=== PATIENT | female | born 1955 | race Caucasian/White ===

== ENCOUNTER 2016-08-05 13:21 | Inpatient (IN) ==
[2016-08-05] MEDS ORDERED: ATIVAN IM ONE (13:32)
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
[2016-08-05 14:10] LABS: BASO% 0.6 % (0.0-0.8); EOS# 0.03 X1000 (0.0-0.7); EOS% 0.2 % (0.0-10.0); HEMATOCRIT 41.5 % (37.0-47.0); HEMOGLOBIN 13.4 g/dL (12.0-16.0); IMM GRAN# 0.03 X1000 (0.0-0.04); IMM GRAN% 0.2 % (0.0-0.5); LYMPH# 2.68 X1000 (1.2-3.4); LYMPH% 22.2 % (20.5-51.1); MANUAL DIFF NEEDED? NO; MCH 26.2 PG (27-31); MCHC 32.3 g/dL (33-37); MCV 81.2 FL (81-99); MONO% 5.8 % (1.7-9.3); MPV 11.3 FL (7.4-10.4); PLT 404 X1000 (130-400); RBC 5.11 XMIL (4.2-5.4)
[2016-08-05 14:17] LABS: URINE SOURCE VOIDED
[2016-08-05 14:23] LABS: UR AMPHETAMINES QUAL NONE DETECTED (NONE DETECT); UR BARBITUATES QUAL NONE DETECTED (NONE DETECT); UR BENZODIAZEPIN QUAL NONE DETECTED (NONE DETECT); UR CANNABINOIDS QUAL NONE DETECTED (NONE DETECT); UR COCAINE QUAL NONE DETECTED (NONE DETECT); UR MDMA QUAL NONE DETECTED (NONE DETECT); UR METHADONE QUAL NONE DETECTED (NONE DETECT); UR METHAMPHETAMINE QUAL NONE DETECTED (NONE DETECT); UR OPIATES QUAL NONE DETECTED (NONE DETECT); UR OXYCODONE QUAL NONE DETECTED (NONE DETECT); UR PCP QUAL NONE DETECTED (NONE DETECT); UR TCA QUAL NONE DETECTED (NONE DETECT)
[2016-08-05 14:27] LABS: FREE T4 1.19 ng/dL (0.93-1.70)
[2016-08-05 14:34] LABS: BILIRUBIN URINE NEGATIVE (NEGATIVE); BLOOD URINE 1+ (NEGATIVE); CLARITY SL. CLOUDY (CLEAR); COLOR YELLOW; GLUCOSE URINE NEGATIVE (NEGATIVE); LEUKOCYTES URINE 2+ (NEGATIVE); NITRITE URINE POSITIVE (NEGATIVE); PROTEIN URINE TRACE mg/dL (NEGATIVE); UROBILINOGEN URINE NORMAL
[2016-08-05 14:35] LABS: URINE WBC 20-40 /HPF (<10)
[2016-08-05 14:36] LABS: URINE CULTURE PL NEEDED? YES; URINE EPITHELIAL CELLS <10 /HPF (<10); URINE RBC <10 /HPF (<10)
[2016-08-05 14:50] LABS: AGAP 14; ALKALINE PHOSPHATASE 119 U/L (32-104); BUN 6 mg/dL (8-22); CALCIUM 9.6 mg/dL (8.8-10.2); CHLORIDE 107 mmol/L (98-107); COSMO 290; GOT 14 U/L (10-30); GPT 9 U/L (10-36); SODIUM 146 mmol/L (136-145); TCO2 25 mmol/L (25-35); TOTAL PROTEIN 7.1 g/dL (6.3-8.3)
[2016-08-05 14:51] LABS: POTASSIUM 2.5 mmol/L (3.5-5.1)
[2016-08-05] MEDS ORDERED: POTASSIUM CHLORIDE 20 MEQ/SWI 100 ML IV SCH (17:00)
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
[2016-08-05] MEDS ORDERED: ZOFRAN IV PRN (17:42)
[2016-08-05] MEDS ORDERED: NS 1,000 ML IV SCH ×2 (17:42)
[2016-08-05] MEDS ORDERED: NS 0 ML ONE (17:46)
[2016-08-05] MEDS: ROCEPHIN 1 GM/NS 50 ML IV SCH (17:57)
[2016-08-05] MEDS ORDERED: PNEUMOVAX 23 IM ONE (18:45)
[2016-08-05] MEDS ORDERED: ZYPREXA ZYDIS PO ONE (19:04)
[2016-08-05] MEDS ORDERED: NS + KCL 40 MEQ 1,000 ML IV SCH (19:05)
[2016-08-05] MEDS ORDERED: KLOR-CON PO ONE ×2 (19:07→19:15)
[2016-08-05] MEDS: ZYPREXA ZYDIS PO SCH (20:06)
[2016-08-05] MEDS: TYLENOL PO PRN (22:41)
[2016-08-05] MEDS: HALDOL IV PRN (22:41)
[2016-08-06 05:45] LABS: MANUAL DIFF NEEDED? NO
[2016-08-06 06:01] LABS: BASO% 0.9 % (0.0-0.8); EOS# 0.15 X1000 (0.0-0.7); HEMATOCRIT 37.2 % (37.0-47.0); HEMOGLOBIN 11.9 g/dL (12.0-16.0); IMM GRAN# 0.01 X1000 (0.0-0.04); IMM GRAN% 0.1 % (0.0-0.5); LYMPH# 3.12 X1000 (1.2-3.4); LYMPH% 41.9 % (20.5-51.1); MCH 26.6 PG (27-31); MCV 83.2 FL (81-99); MONO# 0.54 X1000 (0.11-0.59); MONO% 7.2 % (1.7-9.3); MPV 11.6 FL (7.4-10.4); NEUT% 47.9 % (42.2-75.2); PLT 323 X1000 (130-400); RBC 4.47 XMIL (4.2-5.4)
[2016-08-06 06:25] LABS: AGAP 9; BUN 4 mg/dL (8-22); CALCIUM 8.7 mg/dL (8.8-10.2); CHLORIDE 114 mmol/L (98-107); COSMO 289; POTASSIUM 3.2 mmol/L (3.5-5.1); SODIUM 147 mmol/L (136-145); TCO2 25 mmol/L (25-35)
[2016-08-06] MEDS ORDERED: NS 1,000 ML IV SCH (07:00)
[2016-08-06] MEDS ORDERED: KLOR-CON PO ONE (08:12)
[2016-08-06] MEDS ORDERED: FLUZONE QUAD 2016-2017 SYRINGE IM ONE (09:00)
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
[2016-08-06] MEDS: PRILOSEC PO SCH ×2 (10:24→20:26)
[2016-08-06] MEDS: NORVASC PO SCH (10:24)
[2016-08-06] MEDS: BUSPAR PO SCH (10:25)
[2016-08-06] MEDS: TYLENOL PO PRN (16:24)
[2016-08-06] MEDS: ROCEPHIN 1 GM/NS 50 ML IV SCH (16:25)
[2016-08-06] MEDS: ZYPREXA ZYDIS PO SCH (20:26)
[2016-08-07] MEDS: ATIVAN PO PRN (03:42)
[2016-08-07] MEDS: PRILOSEC PO SCH ×2 (06:21→20:28)
[2016-08-07 06:46] LABS: MANUAL DIFF NEEDED? NO
[2016-08-07 06:51] LABS: EOS# 0.14 X1000 (0.0-0.7); EOS% 1.6 % (0.0-10.0); HEMATOCRIT 38.8 % (37.0-47.0); IMM GRAN# 0.01 X1000 (0.0-0.04); IMM GRAN% 0.1 % (0.0-0.5); LYMPH# 3.29 X1000 (1.2-3.4); LYMPH% 37.5 % (20.5-51.1); MCH 26.3 PG (27-31); MCHC 30.9 g/dL (33-37); MCV 84.9 FL (81-99); MONO# 0.56 X1000 (0.11-0.59); MONO% 6.4 % (1.7-9.3); MPV 12.1 FL (7.4-10.4); NEUT% 53.4 % (42.2-75.2); PLT 321 X1000 (130-400); RBC 4.57 XMIL (4.2-5.4)
[2016-08-07 07:45] LABS: AGAP 8; BUN 5 mg/dL (8-22); CALCIUM 8.7 mg/dL (8.8-10.2); CHLORIDE 110 mmol/L (98-107); COSMO 284; POTASSIUM 3.7 mmol/L (3.5-5.1); SODIUM 144 mmol/L (136-145); TCO2 26 mmol/L (25-35)
[2016-08-07] MEDS: NORVASC PO SCH (09:19)
[2016-08-07] MEDS: BUSPAR PO SCH (09:19)
--- NOTE | 2016-08-07 10:09 | EKG Report ---
Test Performed on : 08/07/2016 09:26:51 AM Test Reason : baseline EKG Blood Pressure : / mmHG Vent. Rate : 061 BPM Atrial Rate : 061 BPM P-R Int : 174 ms QRS Dur : 074 ms QT Int : 394 ms P-R-T Axes : 061 032 -26 degrees QTc Int : 396 ms Normal sinus rhythm. Normal ECG No previous ECGs available Confirmed by Nayan Davenport MD ([id number]) on 08/22/2016 5:06:57 PM
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
[2016-08-07] MEDS: NORCO-5 PO PRN ×2 (13:45→20:28)
[2016-08-07] MEDS: ROCEPHIN 1 GM/NS 50 ML IV SCH (16:37)
[2016-08-07] MEDS: ZYPREXA ZYDIS PO SCH (20:25)
[2016-08-08] MEDS: NORCO-5 PO PRN ×4 (00:25→20:50)
[2016-08-08] MEDS: ATIVAN PO PRN ×2 (02:25→20:51)
[2016-08-08] MEDS: MORPHINE IV PRN ×3 (02:35→23:43)
[2016-08-08] MEDS: PRILOSEC PO SCH ×3 (04:19→20:50)
[2016-08-08] MEDS: NORVASC PO SCH (08:23)
[2016-08-08] MEDS: BUSPAR PO SCH (08:23)
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
[2016-08-08] MEDS: ROCEPHIN 1 GM/NS 50 ML IV SCH (17:50)
[2016-08-08] MEDS: ZYPREXA ZYDIS PO SCH (20:51)
[2016-08-09] MEDS: PRILOSEC PO SCH ×3 (04:44→20:42)
[2016-08-09] MEDS: MORPHINE IV PRN (04:44)
[2016-08-09] MEDS: ATIVAN PO PRN (04:45)
--- NOTE | 2016-08-09 08:27 | Diag Imaging Result Document ---
PROCEDURE NAME: LUMBAR SPINE 2-VIEWS - 08/08/2016 LUMBAR SPINE AP AND LATERAL, TWO VIEWS: FINDINGS: No compressed vertebra. No subluxation. There are mild degenerative changes. Questionable mild scoliosis. IMPRESSION: No acute fracture.
--- NOTE | 2016-08-09 08:30 | Diag Imaging Result Document ---
PROCEDURE NAME: XRAY HIP W/PELVIS BILAT 3-4VWS - 08/08/2016 PELVIS AND BILATERAL HIPS, FOUR VIEWS: FINDINGS: Neither hip is dislocated. No fracture to either hip. No pelvic fracture. No separation at the pubic symphysis. The sacroiliac joints are symmetrical. IMPRESSION: No acute bony injury.
--- NOTE | 2016-08-09 08:34 | Diag Imaging Result Document ---
PROCEDURE NAME: COCCYX/SACRUM - 08/08/2016 PLAIN RADIOGRAPHS OF THE COCCYX AND SACRUM, 3 VIEWS: COMPARISON: None available. FINDINGS: The bones appear somewhat osteopenic. There is over exposure of the sacrum and coccyx on the lateral view, limiting the sensitivity for detecting small fractures. However, no discrete fracture, dislocation, or intrinsic osseous lesion is identified involving the sacrum or coccyx given these limitations. IMPRESSION: No definite acute osseous abnormality.
[2016-08-09] MEDS: NORCO-5 PO PRN ×2 (08:56→20:42)
[2016-08-09] MEDS: BUSPAR PO SCH (08:56)
[2016-08-09] MEDS: NORVASC PO SCH (08:56)
--- NOTE | 2016-08-09 08:56 | Diag Imaging Result Document ---
PROCEDURE NAME: HEAD W/O CONTRAST - 08/09/2016 CT HEAD WITHOUT CONTRAST: COMPARISON: None available. FINDINGS: There are a few aneurysm clips in the region of the suprasellar cistern on the left. There is extensive left temporal encephalomalacia underlying a craniotomy defect. There is associated ex vacuo prominence of the left lateral ventricle. There is no definite acute infarct given the limited sensitivity of CT versus MRI. There is no discrete intracranial mass, mass effect, or acute intracranial hemorrhage. There is a chronic lacunar infarct involving the periventricular white matter on the left. There appears to be mild encephalomalacia involving the left cerebral peduncle. Aside from the craniotomy defect, the surrounding soft tissues and bony structures are essentially unremarkable. IMPRESSION: Extensive left hemispheric encephalomalacia and postsurgical changes, mainly affecting the left temporal lobe. No definite acute pathology is appreciated.
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
[2016-08-09] MEDS: ROCEPHIN 1 GM/NS 50 ML IV SCH (16:40)
[2016-08-09] MEDS: ZYPREXA ZYDIS PO SCH (20:42)
[2016-08-09] MEDS: HALDOL IV PRN (23:46)
[2016-08-10] MEDS: NORCO-5 PO PRN ×2 (05:06→21:43)
[2016-08-10] MEDS: HALDOL IV PRN ×2 (05:06→21:42)
[2016-08-10] MEDS: PRILOSEC PO SCH ×2 (06:25→21:42)
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
[2016-08-10] MEDS: BUSPAR PO SCH (09:34)
[2016-08-10] MEDS: NORVASC PO SCH (09:34)
[2016-08-10] MEDS: ROCEPHIN 1 GM/NS 50 ML IV SCH (17:45)
[2016-08-10] MEDS: ZYPREXA ZYDIS PO SCH (21:42)
[2016-08-11] MEDS: PRILOSEC PO SCH ×2 (06:41→22:00)
[2016-08-11] MEDS: NORVASC PO SCH (08:32)
[2016-08-11] MEDS: BUSPAR PO SCH (08:32)
[2016-08-11] MEDS ORDERED: BENADRYL PO ONE (10:14)
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
[2016-08-11] MEDS: NORCO-5 PO PRN (11:00)
[2016-08-11] MEDS: ZYRTEC PO SCH (11:00)
[2016-08-11] MEDS: ROCEPHIN 1 GM/NS 50 ML IV SCH (17:39)
[2016-08-11] MEDS: ZYPREXA ZYDIS PO SCH (22:00)
[2016-08-12] MEDS: PRILOSEC PO SCH ×2 (06:34→20:49)
[2016-08-12] MEDS: NORCO-5 PO PRN ×2 (08:51→18:32)
[2016-08-12] MEDS: BUSPAR PO SCH (08:51)
[2016-08-12] MEDS: NORVASC PO SCH (08:52)
[2016-08-12] MEDS: ZYRTEC PO SCH (08:52)
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
[2016-08-12] MEDS: ROCEPHIN 1 GM/NS 50 ML IV SCH (16:12)
[2016-08-12] MEDS: ZYPREXA ZYDIS PO SCH (20:49)
[2016-08-12] MEDS: MORPHINE IV PRN (21:44)
[2016-08-13] MEDS: PRILOSEC PO SCH ×2 (06:37→21:43)
[2016-08-13] MEDS: ZYRTEC PO SCH (10:09)
[2016-08-13] MEDS: BUSPAR PO SCH (10:09)
[2016-08-13] MEDS: NORVASC PO SCH (10:09)
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
[2016-08-13] MEDS: NORCO-5 PO PRN ×2 (17:31→21:43)
[2016-08-13] MEDS: ZYPREXA ZYDIS PO SCH (21:42)
[2016-08-13] MEDS: MORPHINE IV PRN (23:06)
[2016-08-13] MEDS: ATIVAN PO PRN (23:07)
[2016-08-14] MEDS: PRILOSEC PO SCH ×2 (06:14→21:41)
[2016-08-14 10:25] LABS: URINE SOURCE CATH
[2016-08-14] MEDS: ZYRTEC PO SCH (10:57)
[2016-08-14] MEDS: NORVASC PO SCH (10:58)
[2016-08-14] MEDS: BUSPAR PO SCH (10:58)
[2016-08-14 11:06] LABS: BILIRUBIN URINE NEGATIVE (NEGATIVE); BLOOD URINE TRACE (NEGATIVE); CLARITY CLEAR (CLEAR); COLOR YELLOW; GLUCOSE URINE NEGATIVE (NEGATIVE); LEUKOCYTES URINE TRACE (NEGATIVE); NITRITE URINE NEGATIVE (NEGATIVE); PROTEIN URINE NEGATIVE (NEGATIVE); UROBILINOGEN URINE NORMAL
[2016-08-14 11:13] LABS: URINE CULTURE PL NEEDED? YES; URINE EPITHELIAL CELLS <10 /HPF (<10); URINE RBC <10 /HPF (<10)
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
[2016-08-14] MEDS: NORCO-5 PO PRN ×2 (17:23→21:41)
[2016-08-14] MEDS: ATIVAN PO PRN (21:41)
[2016-08-14] MEDS: ZYPREXA ZYDIS PO SCH (21:41)
[2016-08-15] MEDS: PRILOSEC PO SCH ×3 (05:41→21:11)
[2016-08-15 06:16] LABS: HEMATOCRIT 38.5 % (37.0-47.0); MCH 26.4 PG (27-31); MCHC 31.2 g/dL (33-37); MCV 84.8 FL (81-99); RBC 4.54 XMIL (4.2-5.4)
[2016-08-15 06:37] LABS: AGAP 10; ALBUMIN 3.5 g/dL (3.5-5.0); ALKALINE PHOSPHATASE 106 U/L (32-104); BUN 18 mg/dL (8-22); CALCIUM 9.4 mg/dL (8.8-10.2); CHLORIDE 102 mmol/L (98-107); COSMO 278; GOT 18 U/L (10-30); GPT 22 U/L (10-36); MAGNESIUM 2.2 mg/dL (1.5-2.7); POTASSIUM 3.9 mmol/L (3.5-5.1); SODIUM 138 mmol/L (136-145); TCO2 26 mmol/L (25-35); TOTAL PROTEIN 6.4 g/dL (6.3-8.3)
[2016-08-15] MEDS: ZYRTEC PO SCH (08:29)
[2016-08-15] MEDS: ATIVAN PO PRN (08:29)
[2016-08-15] MEDS: NORVASC PO SCH (08:30)
[2016-08-15] MEDS: BUSPAR PO SCH (08:30)
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
[2016-08-15] MEDS: NORCO-5 PO PRN (21:11)
[2016-08-15] MEDS: ZYPREXA ZYDIS PO SCH (21:11)
[2016-08-16] MEDS: PRILOSEC PO SCH ×2 (06:29→21:50)
[2016-08-16] MEDS: ZYRTEC PO SCH (08:39)
[2016-08-16] MEDS: NORVASC PO SCH (08:39)
[2016-08-16] MEDS: BUSPAR PO SCH (08:39)
[2016-08-16] MEDS: NORCO-5 PO PRN ×2 (08:40→13:58)
[2016-08-16] MEDS: ATIVAN PO PRN (08:41)
[2016-08-16] MEDS: HALDOL IV PRN (13:58)
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
[2016-08-16] MEDS: ZYPREXA ZYDIS PO SCH (21:50)
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
[2016-08-17] MEDS: PRILOSEC PO SCH ×2 (06:02→20:32)
[2016-08-17] MEDS: BUSPAR PO SCH (10:10)
[2016-08-17] MEDS: NORVASC PO SCH (10:10)
[2016-08-17] MEDS: ZYRTEC PO SCH (10:10)
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
[2016-08-17] MEDS: IMODIUM PO PRN (14:43)
[2016-08-17] MEDS ORDERED: NORCO-7.5 PO ONE (14:44)
[2016-08-17] MEDS: NORCO-7.5 PO PRN (20:32)
[2016-08-17] MEDS: ATIVAN PO PRN (20:33)
[2016-08-17] MEDS: ZYPREXA ZYDIS PO SCH (20:33)
[2016-08-18] MEDS: PRILOSEC PO SCH ×3 (06:05→22:08)
[2016-08-18] MEDS: BUSPAR PO SCH (08:18)
[2016-08-18] MEDS: NORVASC PO SCH (08:18)
[2016-08-18] MEDS: ZYRTEC PO SCH (08:18)
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
[2016-08-18] MEDS: ATIVAN PO PRN ×2 (19:45→23:46)
[2016-08-18] MEDS: NORCO-7.5 PO PRN ×2 (19:45→23:46)
[2016-08-18] MEDS: ZYPREXA ZYDIS PO SCH ×2 (19:45→22:08)
[2016-08-19] MEDS: PRILOSEC PO SCH ×2 (06:10→21:33)
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
[2016-08-19] MEDS: NORVASC PO SCH (10:24)
[2016-08-19] MEDS: ZYRTEC PO SCH (10:24)
[2016-08-19] MEDS: BUSPAR PO SCH (10:24)
[2016-08-19] MEDS: ZYPREXA ZYDIS PO SCH (21:33)
[2016-08-20] MEDS: NORCO-7.5 PO PRN ×3 (07:56→22:27)
[2016-08-20] MEDS: PRILOSEC PO SCH ×2 (07:57→20:52)
[2016-08-20] MEDS: BUSPAR PO SCH (09:13)
[2016-08-20] MEDS: NORVASC PO SCH (09:13)
[2016-08-20] MEDS: ZYRTEC PO SCH (09:13)
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
[2016-08-20] MEDS: IMODIUM PO PRN (18:27)
[2016-08-20] MEDS: ZYPREXA ZYDIS PO SCH (20:52)
[2016-08-20] MEDS: ATIVAN PO PRN (22:27)
[2016-08-21] MEDS: NORCO-7.5 PO PRN ×3 (06:28→19:51)
[2016-08-21] MEDS: PRILOSEC PO SCH ×2 (06:28→22:02)
[2016-08-21] MEDS: BUSPAR PO SCH (08:42)
[2016-08-21] MEDS: NORVASC PO SCH (08:42)
[2016-08-21] MEDS: ZYRTEC PO SCH (08:42)
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
[2016-08-21] MEDS: ZYPREXA ZYDIS PO SCH ×2 (19:50→22:03)
[2016-08-21] MEDS: ATIVAN PO PRN (19:51)
[2016-08-22] MEDS: PRILOSEC PO SCH ×2 (06:29→20:41)
[2016-08-22] MEDS: NORCO-7.5 PO PRN ×4 (06:29→23:04)
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
[2016-08-22] MEDS: BUSPAR PO SCH (09:07)
[2016-08-22] MEDS: NORVASC PO SCH (09:08)
[2016-08-22] MEDS: ZYRTEC PO SCH (09:08)
[2016-08-22] MEDS: ZYPREXA ZYDIS PO SCH (20:41)
[2016-08-22] MEDS: ATIVAN PO PRN (23:04)
[2016-08-23] MEDS: PRILOSEC PO SCH ×3 (06:24→20:34)
[2016-08-23] MEDS: NORCO-7.5 PO PRN ×2 (06:24→19:44)
[2016-08-23] MEDS: BUSPAR PO SCH (09:20)
[2016-08-23] MEDS: NORVASC PO SCH (09:20)
[2016-08-23] MEDS: ZYRTEC PO SCH (09:20)
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
[2016-08-23] MEDS ORDERED: CALMOSEPTINE OINTMENT TOP PRN (14:32)
[2016-08-23] MEDS: ZYPREXA ZYDIS PO SCH ×2 (19:44→20:34)
[2016-08-23] MEDS: ATIVAN PO PRN (19:44)
[2016-08-24] MEDS: ATIVAN PO PRN ×2 (00:16→19:56)
[2016-08-24] MEDS: NORCO-7.5 PO PRN ×2 (00:17→19:56)
[2016-08-24] MEDS: PRILOSEC PO SCH ×3 (06:04→20:53)
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
[2016-08-24] MEDS: BUSPAR PO SCH (08:51)
[2016-08-24] MEDS: NORVASC PO SCH (08:52)
[2016-08-24] MEDS: ZYRTEC PO SCH (08:52)
[2016-08-24] MEDS: ZYPREXA ZYDIS PO SCH ×2 (19:55→20:53)
[2016-08-25] MEDS: NORCO-7.5 PO PRN ×2 (00:45→18:05)
[2016-08-25] MEDS: ATIVAN PO PRN ×2 (00:45→19:55)
[2016-08-25] MEDS: PRILOSEC PO SCH ×3 (06:17→22:20)
--- NOTE | 2016-08-25 07:37 | Extremity Venous Study ---
PROCEDURE NAME: Venous U/S Bilateral Legs - 08/24/2016 BILATERAL LOWER EXTREMITY VENOUS DOPPLER ULTRASOUND: FINDINGS: RIGHT: There is good flow and compressibility in the veins of the right lower extremity. No thrombus. Normal augmentation. LEFT: There is good flow and compressibility in the veins of the left lower extremity. No thrombus. Normal augmentation. There is a small hypo or anechoic area measured in the left popliteal region which may represent a small popliteal cyst. IMPRESSION: No evidence of deep venous thrombosis within either lower extremity.
[2016-08-25] MEDS: BUSPAR PO SCH (08:41)
[2016-08-25] MEDS: ZYRTEC PO SCH (08:41)
[2016-08-25] MEDS: NORVASC PO SCH (08:41)
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
[2016-08-25] MEDS: ZYPREXA ZYDIS PO SCH ×2 (19:55→22:20)
[2016-08-25] MEDS: TYLENOL PO PRN (19:55)
[2016-08-26] MEDS: NORCO-7.5 PO PRN ×3 (01:34→20:58)
[2016-08-26] MEDS: PRILOSEC PO SCH ×2 (06:44→20:57)
--- NOTE | 2016-08-26 08:42 | PROGRESS NOTE ---
DATE: 08/26/2016 SUBJECTIVE: No complaints. OBJECTIVE: Vital Signs: Reviewed and stable. General: The patient is awake. She is in no distress. ASSESSMENT: 1. Adult failure to thrive. 2. DHR case. PLAN: The patient continues to stay in the hospital. Waiting R's approval for rehab.
[2016-08-26] MEDS: ZYRTEC PO SCH (09:24)
[2016-08-26] MEDS: NORVASC PO SCH (09:24)
[2016-08-26] MEDS: BUSPAR PO SCH (09:24)
[2016-08-26] MEDS: ATIVAN PO PRN (20:57)
[2016-08-26] MEDS: ZYPREXA ZYDIS PO SCH (20:58)
[2016-08-26] MEDS: TYLENOL PO PRN (23:37)
[2016-08-27] MEDS: PRILOSEC PO SCH ×2 (06:26→20:16)
--- NOTE | 2016-08-27 08:26 | PROGRESS NOTE ---
DATE: 08/27/2016 SUBJECTIVE: The patient complains of constipation. PHYSICAL: Vital Signs: Stable reviewed. Temperature 97, pulse 80, respiratory rate 18, BP 127/74. General: Patient well developed. Respiratory: She is in no respiratory distress. CV: Regular rate. Chest: Clear. Abdomen: Soft. ASSESSMENT AND PLAN: 1. Constipation. Had MiraLAX. 2. Adult failure to thrive. Needs rehab. 3. DHR. Continue to wait on DHR evaluation and management. Patient will need rehab whenever DHR allows.
[2016-08-27] MEDS: NORVASC PO SCH (09:16)
[2016-08-27] MEDS: BUSPAR PO SCH (09:16)
[2016-08-27] MEDS: ZYRTEC PO SCH (09:16)
[2016-08-27] MEDS: MIRALAX PO SCH ×2 (09:19→20:15)
[2016-08-27] MEDS: NORCO-7.5 PO PRN ×2 (14:39→20:16)
[2016-08-27] MEDS: ZYPREXA ZYDIS PO SCH (20:16)
[2016-08-27] MEDS: ATIVAN PO PRN (20:16)
[2016-08-28] MEDS: PRILOSEC PO SCH ×2 (06:22→20:32)
[2016-08-28] MEDS: BUSPAR PO SCH (09:13)
[2016-08-28] MEDS: ZYRTEC PO SCH (09:13)
[2016-08-28] MEDS: NORVASC PO SCH (09:13)
[2016-08-28] MEDS: MIRALAX PO SCH ×2 (09:13→20:32)
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
[2016-08-28] MEDS: ATIVAN PO PRN (20:32)
[2016-08-28] MEDS: ZYPREXA ZYDIS PO SCH (20:32)
[2016-08-28] MEDS: NORCO-7.5 PO PRN (20:33)
[2016-08-29] MEDS: NORCO-7.5 PO PRN ×2 (02:01→20:56)
[2016-08-29] MEDS: ATIVAN PO PRN ×2 (02:01→20:56)
[2016-08-29] MEDS: PRILOSEC PO SCH ×2 (06:04→20:56)
[2016-08-29] MEDS: BUSPAR PO SCH (08:49)
[2016-08-29] MEDS: NORVASC PO SCH (08:50)
[2016-08-29] MEDS: MIRALAX PO SCH ×2 (08:50→20:56)
[2016-08-29] MEDS: ZYRTEC PO SCH (08:51)
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
[2016-08-29] MEDS: ZYPREXA ZYDIS PO SCH (20:56)
[2016-08-30] MEDS: ATIVAN PO PRN (01:07)
[2016-08-30] MEDS: NORCO-7.5 PO PRN (01:07)
[2016-08-30] MEDS: PRILOSEC PO SCH ×2 (06:24→20:51)
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
[2016-08-30] MEDS: MIRALAX PO SCH ×2 (10:11→23:19)
[2016-08-30] MEDS: NORVASC PO SCH (10:11)
[2016-08-30] MEDS: ZYRTEC PO SCH (10:11)
[2016-08-30] MEDS: BUSPAR PO SCH (10:11)
[2016-08-30] MEDS: ZYPREXA ZYDIS PO SCH (20:51)
[2016-08-31] MEDS: PRILOSEC PO SCH ×2 (06:10→20:58)
[2016-08-31] MEDS: BUSPAR PO SCH (08:50)
[2016-08-31] MEDS: NORVASC PO SCH (08:51)
[2016-08-31] MEDS: MIRALAX PO SCH ×2 (08:51→20:57)
[2016-08-31] MEDS: ZYRTEC PO SCH (08:52)
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
[2016-08-31] MEDS: ZYPREXA ZYDIS PO SCH (20:58)
[2016-09-01] MEDS: PRILOSEC PO SCH ×2 (06:15→20:36)
[2016-09-01] MEDS: BUSPAR PO SCH (09:05)
[2016-09-01] MEDS: ZYRTEC PO SCH (09:05)
[2016-09-01] MEDS: MIRALAX PO SCH ×2 (09:05→22:00)
[2016-09-01] MEDS: NORVASC PO SCH (09:05)
[2016-09-01] MEDS: ZYPREXA ZYDIS PO SCH (20:36)
[2016-09-02] MEDS: PRILOSEC PO SCH ×2 (06:29→20:44)
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
[2016-09-02] MEDS: NORVASC PO SCH (10:53)
[2016-09-02] MEDS: BUSPAR PO SCH (10:53)
[2016-09-02] MEDS: ZYRTEC PO SCH (10:53)
[2016-09-02] MEDS: MIRALAX PO SCH ×2 (10:54→20:59)
[2016-09-02] MEDS: NORCO-7.5 PO PRN (14:40)
[2016-09-02] MEDS: ZYPREXA ZYDIS PO SCH (20:44)
[2016-09-03] MEDS: PRILOSEC PO SCH ×2 (07:00→21:19)
[2016-09-03] MEDS: BUSPAR PO SCH (08:42)
[2016-09-03] MEDS: NORVASC PO SCH (08:42)
[2016-09-03] MEDS: ZYRTEC PO SCH (08:42)
[2016-09-03] MEDS: MIRALAX PO SCH ×2 (10:32→21:22)
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
[2016-09-03] MEDS: NORCO-7.5 PO PRN (21:19)
[2016-09-03] MEDS: ZYPREXA ZYDIS PO SCH (21:19)
[2016-09-03] MEDS: ATIVAN PO PRN (21:19)
[2016-09-04] MEDS: PRILOSEC PO SCH ×2 (06:36→22:34)
[2016-09-04] MEDS: MIRALAX PO SCH ×3 (07:54→22:33)
[2016-09-04] MEDS: NORVASC PO SCH ×2 (07:54→08:56)
[2016-09-04] MEDS: BUSPAR PO SCH ×2 (07:55→08:56)
[2016-09-04] MEDS: ZYRTEC PO SCH ×2 (07:55→08:56)
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
[2016-09-04] MEDS: ATIVAN PO PRN (22:33)
[2016-09-04] MEDS: ZYPREXA ZYDIS PO SCH (22:33)
[2016-09-04] MEDS: NORCO-7.5 PO PRN (22:34)
[2016-09-05] MEDS: PRILOSEC PO SCH ×2 (05:59→20:15)
[2016-09-05] MEDS: BUSPAR PO SCH (08:06)
[2016-09-05] MEDS: NORVASC PO SCH (08:06)
[2016-09-05] MEDS: ZYRTEC PO SCH (08:06)
[2016-09-05] MEDS: MIRALAX PO SCH ×2 (08:07→20:15)
[2016-09-05] MEDS: NORCO-7.5 PO PRN (20:14)
[2016-09-05] MEDS: ZYPREXA ZYDIS PO SCH (20:15)
[2016-09-05] MEDS: ATIVAN PO PRN (20:15)
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
[2016-09-06] MEDS: PRILOSEC PO SCH (09:08)
[2016-09-06] MEDS: NORVASC PO SCH (09:08)
[2016-09-06] MEDS: BUSPAR PO SCH (09:08)
[2016-09-06] MEDS: ZYRTEC PO SCH (09:08)
[2016-09-06] MEDS: MIRALAX PO SCH ×2 (09:08→20:01)
[2016-09-06] MEDS: NORCO-7.5 PO PRN (20:01)
[2016-09-07] MEDS ORDERED: BLISTEX MEDICATED BERRY LIP BALM TOP PRN (04:57)
[2016-09-07] MEDS: MIRALAX PO SCH ×2 (08:50→20:35)
[2016-09-07] MEDS: ZYRTEC PO SCH (08:50)
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
[2016-09-07] MEDS: NORCO-7.5 PO PRN (09:26)
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
[2016-09-08] MEDS: ZYRTEC PO SCH (08:56)
[2016-09-08] MEDS: MIRALAX PO SCH ×2 (08:57→22:00)
[2016-09-08] MEDS: NORCO-7.5 PO PRN (10:26)
--- NOTE | 2016-09-09 08:52 | PROGRESS NOTE ---
DATE: 09/09/2016 SUBJECTIVE: No complaints. OBJECTIVE: Vital signs: Reviewed. Stable. Physical exam unchanged. ASSESSMENT: 1. Failure to thrive. 2. Expressive aphasia. 3. Dementia. PLAN: We will continue to await [facility] and placement.
[2016-09-09] MEDS: MIRALAX PO SCH ×2 (09:52→20:44)
[2016-09-09] MEDS: ZYRTEC PO SCH (09:52)
[2016-09-10] MEDS: MIRALAX PO SCH ×2 (09:16→23:04)
[2016-09-10] MEDS: ZYRTEC PO SCH (09:16)
--- NOTE | 2016-09-10 10:14 | PROGRESS NOTE ---
DATE: 09/10/2016 SUBJECTIVE: No new complaints. OBJECTIVE: Vital Signs: Stable. Reviewed. No changes. Cardiovascular: Regular rate. ASSESSMENT: 1. Acute delirium resolved. 2. Failure to thrive. 3. Expressive aphasia. 4. Chronic dementia. PLAN: We will continue with [facility] evaluation and placement.
[2016-09-10] MEDS: NORCO-7.5 PO PRN (19:49)
[2016-09-11] MEDS: ZYRTEC PO SCH (08:28)
[2016-09-11] MEDS: MIRALAX PO SCH ×2 (08:28→20:06)
--- NOTE | 2016-09-11 11:20 | PROGRESS NOTE ---
DATE: 09/11/2016 SUBJECTIVE: No complaints. PHYSICAL EXAM: Vital Signs: Reviewed. She is in no respiratory distress. No focal neurological changes from previous exams. ASSESSMENT: 1. Adult failure to thrive. 2. Expressive aphasia likely from history of CVA in the past. 3. Chronic dementia. PLAN: Will continue supportive care until which time [facility] evaluation and placement have been achieved.
[2016-09-11] MEDS: NORCO-7.5 PO PRN (20:06)
[2016-09-12] MEDS: NORCO-7.5 PO PRN ×2 (08:25→21:29)
[2016-09-12] MEDS: ZYRTEC PO SCH (08:25)
[2016-09-12] MEDS: MIRALAX PO SCH ×2 (08:30→21:21)
--- NOTE | 2016-09-12 10:37 | PROGRESS NOTE ---
DATE: 09/12/2016 SUBJECTIVE: Patient complains of allergies. She notes that her Zyrtec has somehow been stopped. PHYSICAL EXAMINATION: Vital Signs: Temperature 97 degrees, pulse 82, respiratory 18, BP 181/72, typically around 125-136 systolic. General: She is sitting up, watching TV, eating breakfast. She is in no distress. ASSESSMENT: 1. Labile hypertension. Blood pressure is elevated today, but has been in the 120-130 systolics for the past several weeks. Therefore, we will just follow. 2. Allergies, treat with Zyrtec. PLAN: As noted previously, continue to await placement.
[2016-09-12] MEDS: LIPITOR PO SCH (21:21)
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
[2016-09-13] MEDS: MIRALAX PO SCH ×2 (08:49→20:09)
[2016-09-13] MEDS: ZYRTEC PO SCH (08:49)
[2016-09-13] MEDS: NORCO-7.5 PO PRN (12:21)
[2016-09-13] MEDS: LIPITOR PO SCH (20:08)
[2016-09-14] MEDS: MIRALAX PO SCH ×2 (09:45→20:02)
[2016-09-14] MEDS: ZYRTEC PO SCH (09:45)
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
[2016-09-14] MEDS: ATIVAN PO SCH (16:38)
[2016-09-14] MEDS: BUSPAR PO SCH ×2 (16:38→20:02)
[2016-09-14] MEDS: LIPITOR PO SCH (20:02)
[2016-09-14] MEDS: ZYPREXA ZYDIS PO PRN (23:13)
[2016-09-15] MEDS: BUSPAR PO SCH ×2 (10:09→20:26)
[2016-09-15] MEDS: MIRALAX PO SCH ×2 (10:09→20:26)
[2016-09-15] MEDS: ATIVAN PO SCH ×3 (10:09→16:08)
[2016-09-15] MEDS: ZYRTEC PO SCH (10:09)
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
[2016-09-15] MEDS: NORCO-7.5 PO PRN ×2 (16:07→20:26)
[2016-09-15] MEDS: ZYPREXA ZYDIS PO PRN (20:26)
[2016-09-15] MEDS: LIPITOR PO SCH (20:26)
[2016-09-16] MEDS: BUSPAR PO SCH ×2 (08:54→20:15)
[2016-09-16] MEDS: ATIVAN PO SCH ×2 (08:54→20:15)
[2016-09-16] MEDS: ZYRTEC PO SCH (08:54)
[2016-09-16] MEDS: MIRALAX PO SCH ×2 (08:54→20:15)
--- NOTE | 2016-09-16 10:56 | PROGRESS NOTE ---
DATE: 09/16/2016 SUBJECTIVE: The patient is tearful today. She looks a little bit more lethargic than usual. Very tearful. In any case, she is also pointing at her suprapubic area and talking about and those issues. OBJECTIVE: Vital signs: Blood pressure is 123/94, heart rate of 85, respiratory rate 18, temperature 98.1 degrees. General: A well-developed female in no acute distress. Cardiovascular: Regular rate and rhythm. Pulmonary: Bilateral breath sounds. Clear to auscultation. Gastrointestinal: Soft, nontender, nondistended. Bowel sounds are positive. LABORATORY DATA: None. PROBLEM LIST: 1. Dementia, vascular type. We have resumed her medications. I am not sure if Aricept may not help her a little bit. So, I am going to start some low-dose Aricept to see if it helps with her cognitive issues hopefully. 2. Suprapubic pain. We will check a urinalysis and make sure she is doing okay. 3. Depression/anxiety issues. I resumed her buspirone. We actually went up a little bit on the dose. I am going to cut back on her Ativan because I am just afraid that may be causing some confusion and we will start some low-dose Zyprexa at night and follow. DISPOSITION: We are still waiting on state evaluation for guardianship and placement. That is still in process which has delayed discharge.
[2016-09-16 16:17] LABS: URINE SOURCE CLEAN CATCH
[2016-09-16] MEDS: NORCO-7.5 PO PRN ×2 (16:22→20:15)
[2016-09-16 16:53] LABS: BILIRUBIN URINE NEGATIVE (NEGATIVE); BLOOD URINE 2+ (NEGATIVE); CLARITY VERY CLOUDY (CLEAR); COLOR YELLOW; GLUCOSE URINE NEGATIVE (NEGATIVE); LEUKOCYTES URINE 2+ (NEGATIVE); NITRITE URINE POSITIVE (NEGATIVE); PROTEIN URINE 1+(30 mg/dL) mg/dL (NEGATIVE); SP GRAVITY URINE 1.025; UROBILINOGEN URINE NORMAL
[2016-09-16 16:55] LABS: URINE CULTURE PL NEEDED? YES; URINE EPITHELIAL CELLS >10 /HPF (<10); URINE RBC TNTC /HPF (<10); URINE WBC TNTC /HPF (<10)
[2016-09-16] MEDS: ZYPREXA ZYDIS PO SCH (20:15)
[2016-09-16] MEDS: LIPITOR PO SCH (20:15)
[2016-09-16] MEDS: ARICEPT PO SCH (20:15)
[2016-09-17] MEDS: ZYRTEC PO SCH (08:52)
[2016-09-17] MEDS: ATIVAN PO SCH ×2 (08:52→20:13)
[2016-09-17] MEDS: BUSPAR PO SCH ×2 (08:52→20:13)
[2016-09-17] MEDS: MIRALAX PO SCH ×2 (10:35→20:16)
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
[2016-09-17] MEDS: LIPITOR PO SCH (20:13)
[2016-09-17] MEDS: ARICEPT PO SCH (20:13)
[2016-09-17] MEDS: CIPRO PO SCH (20:13)
[2016-09-17] MEDS: ZYPREXA ZYDIS PO SCH (20:14)
[2016-09-18] MEDS: ATIVAN PO SCH ×2 (09:01→21:06)
[2016-09-18] MEDS: MIRALAX PO SCH ×2 (09:01→21:09)
[2016-09-18] MEDS: ZYRTEC PO SCH (09:01)
[2016-09-18] MEDS: BUSPAR PO SCH ×2 (09:01→21:06)
[2016-09-18] MEDS: CIPRO PO SCH ×2 (09:01→21:06)
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
[2016-09-18] MEDS: ARICEPT PO SCH (21:05)
[2016-09-18] MEDS: ZYPREXA ZYDIS PO SCH (21:06)
[2016-09-18] MEDS: LIPITOR PO SCH (21:06)
[2016-09-19] MEDS: IMODIUM PO PRN ×2 (08:48→10:22)
[2016-09-19] MEDS: CIPRO PO SCH ×2 (09:03→20:29)
[2016-09-19] MEDS: BUSPAR PO SCH ×2 (09:04→20:29)
[2016-09-19] MEDS: ZYRTEC PO SCH (09:04)
[2016-09-19] MEDS: ATIVAN PO SCH ×2 (09:04→20:29)
[2016-09-19] MEDS: MIRALAX PO SCH ×2 (09:04→20:30)
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
[2016-09-19] MEDS: LIPITOR PO SCH (20:29)
[2016-09-19] MEDS: ARICEPT PO SCH (20:29)
[2016-09-19] MEDS: ZYPREXA ZYDIS PO SCH (20:29)
[2016-09-20] MEDS: CIPRO PO SCH ×2 (10:21→20:05)
[2016-09-20] MEDS: ZYRTEC PO SCH (10:21)
[2016-09-20] MEDS: ATIVAN PO SCH ×2 (10:21→20:00)
[2016-09-20] MEDS: BUSPAR PO SCH ×2 (10:21→20:01)
[2016-09-20] MEDS: MIRALAX PO SCH (10:22)
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
[2016-09-20] MEDS: LIPITOR PO SCH (20:00)
[2016-09-20] MEDS: ZYPREXA ZYDIS PO SCH (20:00)
[2016-09-20] MEDS: ARICEPT PO SCH (20:00)
[2016-09-21] MEDS: BUSPAR PO SCH ×2 (08:30→21:26)
[2016-09-21] MEDS: ZYRTEC PO SCH (08:30)
[2016-09-21] MEDS: ATIVAN PO SCH ×2 (08:30→21:26)
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
[2016-09-21] MEDS ORDERED: VISINE OPH DROPS BOTH EYES PRN (08:50)
[2016-09-21] MEDS ORDERED: NS 500 ML ONE (10:23)
[2016-09-21] MEDS: ZOSYN 3.375 GM/NS 50 ML IV SCH ×4 (10:26→21:50)
[2016-09-21] MEDS: LIPITOR PO SCH (21:26)
[2016-09-21] MEDS: ARICEPT PO SCH (21:26)
[2016-09-21] MEDS: ZYPREXA ZYDIS PO SCH (21:26)
[2016-09-22] MEDS: ZOSYN 3.375 GM/NS 50 ML IV SCH ×4 (03:30→21:21)
[2016-09-22 05:16] LABS: URINE CULTURE PL NEEDED? NO; URINE SOURCE CATH
[2016-09-22 05:21] LABS: BILIRUBIN URINE NEGATIVE (NEGATIVE); BLOOD URINE NEGATIVE (NEGATIVE); CLARITY CLEAR (CLEAR); COLOR YELLOW; GLUCOSE URINE NEGATIVE (NEGATIVE); LEUKOCYTES URINE NEGATIVE (NEGATIVE); NITRITE URINE NEGATIVE (NEGATIVE); PROTEIN URINE NEGATIVE (NEGATIVE); SP GRAVITY URINE 1.025; UROBILINOGEN URINE NORMAL
[2016-09-22 06:14] LABS: URINE EPITHELIAL CELLS <10 /HPF (<10)
[2016-09-22 06:43] LABS: HEMOGLOBIN 10.8 g/dL (12.0-16.0); MCH 26.7 PG (27-31); MCHC 30.9 g/dL (33-37); MCV 86.4 FL (81-99); MPV 10.6 FL (7.4-10.4); RBC 4.05 XMIL (4.2-5.4)
[2016-09-22 06:58] LABS: AGAP 10; ALBUMIN 3.6 g/dL (3.5-5.0); ALKALINE PHOSPHATASE 84 U/L (32-104); BUN 17 mg/dL (8-22); CALCIUM 8.6 mg/dL (8.8-10.2); CHLORIDE 108 mmol/L (98-107); COSMO 286; GOT 12 U/L (10-30); GPT 15 U/L (10-36); POTASSIUM 3.9 mmol/L (3.5-5.1); SODIUM 143 mmol/L (136-145); TCO2 25 mmol/L (25-35); TOTAL PROTEIN 5.9 g/dL (6.3-8.3)
[2016-09-22] MEDS: ATIVAN PO SCH ×2 (09:30→21:16)
[2016-09-22] MEDS: ZYRTEC PO SCH (09:30)
[2016-09-22] MEDS: BUSPAR PO SCH ×2 (09:30→21:15)
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
[2016-09-22] MEDS: ARICEPT PO SCH (21:16)
[2016-09-22] MEDS: ZYPREXA ZYDIS PO SCH (21:16)
[2016-09-22] MEDS: LIPITOR PO SCH (21:16)
[2016-09-23] MEDS: ZOSYN 3.375 GM/NS 50 ML IV SCH ×5 (00:42→22:44)
--- NOTE | 2016-09-23 09:06 | PROGRESS NOTE ---
DATE: 09/23/2016 SUBJECTIVE: Patient without complaints. OBJECTIVE: Vital Signs: Reviewed and stable. General: Patient is well developed, lying in bed. No distress. ASSESSMENT: 1. Urinary tract infection. Urine culture pending. Will continue antibiotics until culture negative. 2. Adult failure to thrive. PLAN: Continue to await [facility] .
[2016-09-23] MEDS: ATIVAN PO SCH ×2 (09:51→20:25)
[2016-09-23] MEDS: BUSPAR PO SCH ×2 (09:51→20:25)
[2016-09-23] MEDS: ZYRTEC PO SCH (09:51)
[2016-09-23] MEDS: LIPITOR PO SCH (20:25)
[2016-09-23] MEDS: ARICEPT PO SCH (20:25)
[2016-09-23] MEDS: ZYPREXA ZYDIS PO SCH (20:26)
[2016-09-24] MEDS: TYLENOL PO PRN (03:30)
[2016-09-24] MEDS: ZOSYN 3.375 GM/NS 50 ML IV SCH ×4 (05:58→23:08)
[2016-09-24] MEDS: ATIVAN PO SCH ×2 (08:24→20:40)
[2016-09-24] MEDS: BUSPAR PO SCH ×2 (08:24→20:40)
[2016-09-24] MEDS: ZYRTEC PO SCH (08:24)
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
[2016-09-24] MEDS: ARICEPT PO SCH (20:40)
[2016-09-24] MEDS: LIPITOR PO SCH (20:40)
[2016-09-24] MEDS: ZYPREXA ZYDIS PO SCH (20:40)
[2016-09-25] MEDS: ZOSYN 3.375 GM/NS 50 ML IV SCH ×3 (05:08→17:24)
[2016-09-25] MEDS: ZYRTEC PO SCH (08:39)
[2016-09-25] MEDS: ATIVAN PO SCH ×2 (08:39→20:14)
[2016-09-25] MEDS: BUSPAR PO SCH ×2 (08:39→20:14)
--- NOTE | 2016-09-25 12:02 | PROGRESS NOTE ---
DATE: 09/25/2016 SUBJECTIVE: Patient without new complaints. PHYSICAL EXAMINATION: Vital Signs: Temperature 98 degrees. Pulse 75. Respiratory 18. BP 136/75. General: The patient is in no distress. She is noted to ambulate up and down the nguyen without difficulty. ASSESSMENT: 1. Urinary tract infection. Her last urine culture showed a Pseudomonas. 2. Adult failure to thrive. PLAN: The patient, unfortunately, has continued to remain in the hospital secondary to [facility] and awaiting placement. Her last urine culture was positive for Pseudomonas. Will attempt to reculture so we can stop her antibiotics.
[2016-09-25] MEDS: LIPITOR PO SCH (20:14)
[2016-09-25] MEDS: ZYPREXA ZYDIS PO SCH (20:14)
[2016-09-25] MEDS: ARICEPT PO SCH (20:14)
[2016-09-26] MEDS: TYLENOL PO PRN (00:02)
[2016-09-26] MEDS: ZOSYN 3.375 GM/NS 50 ML IV SCH ×6 (00:02→23:43)
[2016-09-26] MEDS: ZYRTEC PO SCH (09:38)
[2016-09-26] MEDS: BUSPAR PO SCH ×2 (09:38→20:00)
[2016-09-26] MEDS: ATIVAN PO SCH ×2 (09:38→20:00)
--- NOTE | 2016-09-26 14:09 | PROGRESS NOTE ---
DATE: 09/26/2016 SUBJECTIVE: The patient is without any complaints. She is sitting in her wheelchair out in the nguyen. OBJECTIVE: Vital Signs: Blood pressure is 130/77, heart rate 72, respirations are 18, temperature is 97.5 degrees oral with room air saturation of 99%. Cardiovascular: Regular rate and rhythm. S1, S2 appreciated. Pulmonary: Breath sounds are clear. No increased work of breathing noted. ASSESSMENT: 1. Urinary tract infection. Her last urine culture showed Pseudomonas. Repeat culture is pending from 09/16/2016. Urine culture was a catheter. Urine culture was repeated yesterday 09/25/2016 and it has returned no growth. This has resolved. 2. Adult failure to thrive. 3. Unfortunately the patient continues to remain in the hospital waiting on [employer] placement. Dictated by DENNIS Rose for Raphael Montero MD
[2016-09-26] MEDS: ARICEPT PO SCH (20:00)
[2016-09-26] MEDS: ZYPREXA ZYDIS PO SCH (20:01)
[2016-09-26] MEDS: LIPITOR PO SCH (20:01)
[2016-09-27] MEDS: ZOSYN 3.375 GM/NS 50 ML IV SCH ×3 (05:18→17:55)
[2016-09-27] MEDS: ZYRTEC PO SCH (08:18)
[2016-09-27] MEDS: BUSPAR PO SCH ×2 (08:18→20:32)
[2016-09-27] MEDS: ATIVAN PO SCH ×2 (08:18→20:32)
[2016-09-27] MEDS ORDERED: NS 250 ML ONE (12:39)
[2016-09-27] MEDS: LIPITOR PO SCH (20:32)
[2016-09-27] MEDS: ARICEPT PO SCH (20:32)
[2016-09-27] MEDS: ZYPREXA ZYDIS PO SCH (20:32)
[2016-09-28] MEDS: ZOSYN 3.375 GM/NS 50 ML IV SCH ×2 (01:10→06:44)
[2016-09-28] MEDS: ATIVAN PO SCH ×2 (08:23→20:41)
[2016-09-28] MEDS: ZYRTEC PO SCH (08:23)
[2016-09-28] MEDS: BUSPAR PO SCH ×2 (08:23→20:40)
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
[2016-09-28] MEDS: ARICEPT PO SCH (20:40)
[2016-09-28] MEDS: LIPITOR PO SCH (20:41)
[2016-09-28] MEDS: ZYPREXA ZYDIS PO SCH (20:41)
[2016-09-29] MEDS: TYLENOL PO PRN (06:28)
[2016-09-29] MEDS: BUSPAR PO SCH ×2 (09:45→20:46)
[2016-09-29] MEDS: ZYRTEC PO SCH (09:45)
[2016-09-29] MEDS: ATIVAN PO SCH ×2 (09:45→20:46)
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
[2016-09-29] MEDS: ZYPREXA ZYDIS PO SCH (20:46)
[2016-09-29] MEDS: ARICEPT PO SCH (20:46)
[2016-09-29] MEDS: LIPITOR PO SCH (20:46)
--- NOTE | 2016-09-30 08:56 | PROGRESS NOTE ---
DATE: 09/30/2016 SUBJECTIVE: Patient without complaints. She frequently gets in her wheelchair and self propels down the nguyen. PHYSICAL EXAMINATION: Vital Signs: Temperature 97 degrees. Pulse 68. Respiratory 18. BP 134/74. General: Patient is in no respiratory distress. She does answer questions. Musculoskeletal Exam: Unchanged. ASSESSMENT: Adult failure to thrive. PLAN: Continue to await [facility] placement of patient.
[2016-09-30] MEDS: BUSPAR PO SCH ×2 (10:32→20:36)
[2016-09-30] MEDS: ATIVAN PO SCH ×2 (10:33→20:36)
[2016-09-30] MEDS: ZYRTEC PO SCH (10:33)
[2016-09-30] MEDS: ARICEPT PO SCH (20:36)
[2016-09-30] MEDS: LIPITOR PO SCH (20:36)
[2016-09-30] MEDS: ZYPREXA ZYDIS PO SCH (20:36)
[2016-10-01] MEDS: TYLENOL PO PRN (04:29)
[2016-10-01] MEDS: ATIVAN PO SCH ×2 (09:16→21:33)
[2016-10-01] MEDS: ZYRTEC PO SCH (09:16)
[2016-10-01] MEDS: BUSPAR PO SCH ×2 (09:16→21:33)
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
[2016-10-01] MEDS: LIPITOR PO SCH (21:32)
[2016-10-01] MEDS: ARICEPT PO SCH (21:32)
[2016-10-01] MEDS: ZYPREXA ZYDIS PO SCH (21:33)
[2016-10-02] MEDS: BUSPAR PO SCH ×2 (08:17→21:38)
[2016-10-02] MEDS: ATIVAN PO SCH ×2 (08:17→21:38)
[2016-10-02] MEDS: IMODIUM PO PRN (08:17)
[2016-10-02] MEDS: ZYRTEC PO SCH (08:17)
--- NOTE | 2016-10-02 11:26 | PROGRESS NOTE ---
DATE: 10/02/2016 SUBJECTIVE: Ms. Vuong states that she thinks she feels better tonight. She states she thinks she may have some gas later on. OBJECTIVE: Temperature 98 degrees, pulse 67, respiratory 18, BP 126/72. General: The patient is in no distress. She is noted throughout the day to self-propel in a wheelchair up and down the nguyen. She continues to be disoriented and agitated at times but easily resolved. ASSESSMENT: 1. Chronic dementia. 2. Failure to thrive. PLAN: Will continue to await [facility]'s assistance so Ms. Vuong can be transferred to a fpc.
[2016-10-02] MEDS: LIPITOR PO SCH (21:38)
[2016-10-02] MEDS: ZYPREXA ZYDIS PO SCH (21:38)
[2016-10-02] MEDS: ARICEPT PO SCH (21:38)
[2016-10-03] MEDS: ATIVAN PO SCH ×2 (10:24→21:10)
[2016-10-03] MEDS: BUSPAR PO SCH ×2 (10:24→21:10)
[2016-10-03] MEDS: ZYRTEC PO SCH (10:24)
--- NOTE | 2016-10-03 16:32 | PROGRESS NOTE ---
DATE: 10/03/2016 SUBJECTIVE: Patient without new complaints. OBJECTIVE: Vital signs: Stable. General: Patient is well developed, sitting in a chair. She is watching. No physical changes. ASSESSMENT: Adult failure to thrive. PLAN: Will continue the patient in the hospital. She has a court date on 11/09/2016 with [facility]. Hopefully they will allow us to place her in a longterm at that point.
[2016-10-03] MEDS: LIPITOR PO SCH (21:09)
[2016-10-03] MEDS: ARICEPT PO SCH (21:10)
[2016-10-03] MEDS: ZYPREXA ZYDIS PO SCH (21:11)
[2016-10-04] MEDS: PRINIVIL PO SCH (08:59)
[2016-10-04] MEDS: ATIVAN PO SCH ×2 (08:59→22:08)
[2016-10-04] MEDS: BUSPAR PO SCH ×2 (08:59→22:07)
[2016-10-04] MEDS: ZYRTEC PO SCH (08:59)
--- NOTE | 2016-10-04 09:53 | PROGRESS NOTE ---
DATE: 10/04/2016 SUBJECTIVE: Patient without complaints. OBJECTIVE: Vital signs: Temperature 97 degrees, pulse 86, respiratory 18, BP 126-168 systolic. General: Patient is well developed, sitting in a chair. She is in no distress. She is awake, alert, but disoriented. Neck: Supple. CV: Regular rate. Chest: Clear. ASSESSMENT: 1. Hypertension. We will add an WILFRIDO inhibitor. 2. Chronic dementia. PLAN: We will add WILFRIDO inhibitor. We will continue to follow her blood pressures. Hopefully R will allow for transfer soon.
[2016-10-04] MEDS: ARICEPT PO SCH (22:07)
[2016-10-04] MEDS: LIPITOR PO SCH (22:08)
[2016-10-04] MEDS: ZYPREXA ZYDIS PO SCH (22:08)
[2016-10-05] MEDS: ZYRTEC PO SCH (08:44)
[2016-10-05] MEDS: PRINIVIL PO SCH (08:44)
[2016-10-05] MEDS: BUSPAR PO SCH ×2 (08:44→20:21)
[2016-10-05] MEDS: TYLENOL PO PRN (08:44)
[2016-10-05] MEDS: IMODIUM PO PRN (08:44)
[2016-10-05] MEDS: ATIVAN PO SCH ×2 (08:44→20:21)
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
[2016-10-05] MEDS ORDERED: ULTRACET 37.5MG/325MG PO ONE (15:51)
[2016-10-05] MEDS: ZYPREXA ZYDIS PO SCH (20:21)
[2016-10-05] MEDS: ARICEPT PO SCH (20:21)
[2016-10-05] MEDS: LIPITOR PO SCH (20:21)
[2016-10-06] MEDS: ZYRTEC PO SCH (08:40)
[2016-10-06] MEDS: ATIVAN PO SCH ×2 (08:41→20:54)
[2016-10-06] MEDS: BUSPAR PO SCH ×2 (08:41→20:54)
[2016-10-06] MEDS: PRINIVIL PO SCH (08:41)
[2016-10-06] MEDS: IMODIUM PO PRN (10:15)
[2016-10-06] MEDS: LIPITOR PO SCH (20:54)
[2016-10-06] MEDS: ZYPREXA ZYDIS PO SCH (20:54)
[2016-10-06] MEDS: ARICEPT PO SCH (20:54)
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
[2016-10-07] MEDS: PRINIVIL PO SCH (10:21)
[2016-10-07] MEDS: ATIVAN PO SCH ×2 (10:21→21:03)
[2016-10-07] MEDS: ZYRTEC PO SCH (10:21)
[2016-10-07] MEDS: BUSPAR PO SCH ×2 (10:21→21:03)
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
[2016-10-07] MEDS: ZYPREXA ZYDIS PO SCH (21:03)
[2016-10-07] MEDS: LIPITOR PO SCH (21:03)
[2016-10-07] MEDS: ARICEPT PO SCH (21:03)
[2016-10-07] MEDS: ULTRACET 37.5MG/325MG PO PRN (21:09)
[2016-10-08] MEDS: ULTRACET 37.5MG/325MG PO PRN (07:22)
[2016-10-08] MEDS: BUSPAR PO SCH ×2 (10:06→20:36)
[2016-10-08] MEDS: ATIVAN PO SCH ×2 (10:07→20:35)
[2016-10-08] MEDS: PRINIVIL PO SCH (10:07)
[2016-10-08] MEDS: ZYRTEC PO SCH (10:07)
--- NOTE | 2016-10-08 12:03 | PROGRESS NOTE ---
DATE: 10/08/2016 SUBJECTIVE: The patient is sitting up in the chair watching TV. She has no complaints. OBJECTIVE: Vital Signs: Blood pressure is 145/73 with a heart rate of 76. Respirations are 18. Temperature is 98.2 degrees oral with room air saturations of 99-100%. Cardiovascular: Regular rate and rhythm. S1 and S2 appreciated. Pulmonary: Breath sounds are clear. No increased work of breathing noted. Gastrointestinal: Abdomen is soft, nontender, nondistended with bowel sounds in all 4 quadrants. Extremities: No clubbing, cyanosis, or edema. Calves nontender. Pulses are palpable x4. DISPOSITION: We will continue with her current regimen. We continue to wait on placement. Evidently, her court date is slated for 11/09/2016. Dictated by DENNIS Rose for Raphael Montero MD
[2016-10-08] MEDS ORDERED: SUDAFED PO ONE (15:10)
[2016-10-08] MEDS: ARICEPT PO SCH (20:35)
[2016-10-08] MEDS: ZYPREXA ZYDIS PO SCH (20:35)
[2016-10-08] MEDS: LIPITOR PO SCH (20:36)
[2016-10-09] MEDS: ULTRACET 37.5MG/325MG PO PRN (08:58)
[2016-10-09] MEDS: ATIVAN PO SCH ×2 (08:58→21:12)
[2016-10-09] MEDS: SUDAFED PO PRN (08:58)
[2016-10-09] MEDS: PRINIVIL PO SCH (08:58)
[2016-10-09] MEDS: BUSPAR PO SCH ×2 (08:58→21:12)
[2016-10-09] MEDS: ZYRTEC PO SCH (08:58)
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
[2016-10-09] MEDS ORDERED: ZOFRAN PO PRN (13:12)
[2016-10-09] MEDS: LIPITOR PO SCH (21:12)
[2016-10-09] MEDS: ZYPREXA ZYDIS PO SCH (21:12)
[2016-10-09] MEDS: ARICEPT PO SCH (21:12)
[2016-10-10] MEDS: ATIVAN PO SCH ×2 (09:33→20:28)
[2016-10-10] MEDS: PRINIVIL PO SCH (09:33)
[2016-10-10] MEDS: ZYRTEC PO SCH (09:33)
[2016-10-10] MEDS: BUSPAR PO SCH ×2 (09:33→20:27)
[2016-10-10] MEDS ORDERED: ZOFRAN ODT PO PRN (14:31)
[2016-10-10] MEDS: LIPITOR PO SCH (20:27)
[2016-10-10] MEDS: ZYPREXA ZYDIS PO SCH (20:27)
[2016-10-10] MEDS: ARICEPT PO SCH (20:28)
[2016-10-10] MEDS: ULTRACET 37.5MG/325MG PO PRN (20:28)
--- NOTE | 2016-10-10 20:50 | PROGRESS NOTE ---
DATE: 10/10/2016 SUBJECTIVE: Patient has no focal complaints. OBJECTIVE: Vital signs: Blood pressure 110/64, heart rate 70, respiratory rate 18, temperature 98 degrees. Cardiovascular: Regular rate and rhythm. Pulmonary: Clear auscultation bilaterally. PROBLEMS: 1. Dementia. She is stable on her current medications. 2. Hypertension. Seems to be well controlled on lisinopril. 3. Disposition. Still waiting DHR issues. Continue to follow.
[2016-10-11] MEDS: ATIVAN PO SCH ×2 (10:00→20:21)
[2016-10-11] MEDS: ZYRTEC PO SCH (10:00)
[2016-10-11] MEDS: PRINIVIL PO SCH (10:00)
[2016-10-11] MEDS: BUSPAR PO SCH ×2 (10:00→20:21)
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
[2016-10-11] MEDS: SUDAFED PO PRN (17:19)
[2016-10-11] MEDS: LIPITOR PO SCH (20:21)
[2016-10-11] MEDS: ZYPREXA ZYDIS PO SCH (20:21)
[2016-10-11] MEDS: ULTRACET 37.5MG/325MG PO PRN (20:21)
[2016-10-11] MEDS: ARICEPT PO SCH (20:21)
[2016-10-12] MEDS: BUSPAR PO SCH ×2 (09:00→20:24)
[2016-10-12] MEDS: PRINIVIL PO SCH (09:00)
[2016-10-12] MEDS: ATIVAN PO SCH ×2 (09:00→20:24)
[2016-10-12] MEDS: ZYRTEC PO SCH (09:00)
--- NOTE | 2016-10-12 10:56 | PROGRESS NOTE ---
DATE: 10/12/2016 SUBJECTIVE: Patient without new complaints. OBJECTIVE: Vital signs: Temperature 97, pulse 85, respiratory 18, BP 132/70. General: Patient is well developed, well nourished. Currently in no real respiratory distress. Speech is regular. Memory is intact. She is awake, alert. HEENT: Normocephalic. Neck: Supple. CV: Regular rate. ASSESSMENT: 1. Hypertension. Stable on current lisinopril. 2. Dementia, stable, unchanged. 3. Adult failure to thrive. PLAN: Continue to await DHR placement. Hopefully this will occur in mid October.
[2016-10-12] MEDS: ARICEPT PO SCH (20:23)
[2016-10-12] MEDS: ZYPREXA ZYDIS PO SCH (20:23)
[2016-10-12] MEDS: LIPITOR PO SCH (20:23)
--- NOTE | 2016-10-13 09:47 | PROGRESS NOTE ---
DATE: 10/13/2016 SUBJECTIVE: No new complaints. OBJECTIVE: No changes.Vital signs: Blood pressure is stable at 130/77. General: Patient is awake, alert, in no distress. ASSESSMENT: 1. Dementia, unchanged. 2. Failure to thrive, unchanged. 3. Hypertension. PLAN: Continue to await DHR placement.
[2016-10-13] MEDS: ATIVAN PO SCH ×2 (10:18→21:11)
[2016-10-13] MEDS: PRINIVIL PO SCH (10:18)
[2016-10-13] MEDS: BUSPAR PO SCH ×2 (10:18→21:12)
[2016-10-13] MEDS: ZYRTEC PO SCH (10:19)
[2016-10-13] MEDS: SUDAFED PO PRN (11:19)
[2016-10-13] MEDS: IMODIUM PO PRN (13:25)
[2016-10-13] MEDS: ZYPREXA ZYDIS PO SCH (21:11)
[2016-10-13] MEDS: ARICEPT PO SCH (21:16)
[2016-10-13] MEDS: LIPITOR PO SCH (21:48)
--- NOTE | 2016-10-14 08:08 | PROGRESS NOTE ---
DATE: 10/14/2016 SUBJECTIVE: No complaints. PHYSICAL EXAMINATION: Unchanged. Vital Signs: Stable. BP 124/72. General: Patient is well- developed. She is awake, alert. No distress. CV: Regular rate. Chest: Clear. ASSESSMENT: 1. Hyperlipidemia. Continue medications. 2. Hypertension, stable. 3. Depression, situational. 4. Dementia. PLAN: We will continue patient on her current medications without change. We will await DHR and placement.
[2016-10-14] MEDS: PRINIVIL PO SCH (08:55)
[2016-10-14] MEDS: ULTRACET 37.5MG/325MG PO PRN (08:55)
[2016-10-14] MEDS: SUDAFED PO PRN (08:55)
[2016-10-14] MEDS: ATIVAN PO SCH ×2 (08:55→21:21)
[2016-10-14] MEDS: BUSPAR PO SCH ×2 (08:55→21:21)
[2016-10-14] MEDS ORDERED: LIPITOR PO SCH (09:00)
[2016-10-14] MEDS: ZYPREXA ZYDIS PO SCH (21:21)
[2016-10-14] MEDS: ARICEPT PO SCH (21:21)
[2016-10-15] MEDS: PRINIVIL PO SCH (09:22)
[2016-10-15] MEDS: ATIVAN PO SCH ×2 (09:22→21:18)
[2016-10-15] MEDS: BUSPAR PO SCH (09:22)
--- NOTE | 2016-10-15 10:24 | PROGRESS NOTE ---
DATE: 10/15/2016 SUBJECTIVE: No complaints. No changes. OBJECTIVE: Vital Signs: Stable, 97 temperature, pulse 70, respiratory rate 18, blood pressure 139/77. General: Patient is noted to be ambulatory in a wheelchair in the nguyen. No distress, no changes physically. ASSESSMENT: 1. Hypertension. 2. High cholesterol. 3. Adult failure to thrive. PLAN: We will continue to await DHR placement, hopefully in mid October.
[2016-10-15] MEDS: SUDAFED PO PRN (12:14)
[2016-10-15] MEDS: LIPITOR PO SCH (21:18)
[2016-10-15] MEDS: ARICEPT PO SCH (21:18)
[2016-10-15] MEDS: ZYPREXA ZYDIS PO SCH (21:18)
[2016-10-16] MEDS: ATIVAN PO SCH ×3 (08:37→21:00)
[2016-10-16] MEDS: PRINIVIL PO SCH (08:38)
--- NOTE | 2016-10-16 14:39 | PROGRESS NOTE ---
DATE: 10/16/2016 SUBJECTIVE: No complaints. PHYSICAL: No changes. Vital Signs: Stable and reviewed. Blood pressure 113/74. CV: Regular rate. Chest: Clear. ASSESSMENT: 1. Hypertension. 2. High cholesterol. 3. Chronic dementia. 4. Chronic failure to thrive. PLAN: Continue patient on current medications. Continue physical therapy. Continue to await DHR displacement.
[2016-10-16] MEDS: SUDAFED PO PRN (15:25)
[2016-10-16] MEDS: LIPITOR PO SCH (19:50)
[2016-10-16] MEDS: ZYPREXA ZYDIS PO SCH ×2 (19:50→21:00)
[2016-10-16] MEDS: ARICEPT PO SCH ×2 (19:50→21:00)
[2016-10-17] MEDS: LIPITOR PO SCH ×2 (03:35→20:46)
[2016-10-17] MEDS: TYLENOL PO PRN (06:04)
[2016-10-17] MEDS: PRINIVIL PO SCH (08:47)
[2016-10-17] MEDS: ATIVAN PO SCH ×2 (08:47→20:46)
--- NOTE | 2016-10-17 10:35 | PROGRESS NOTE ---
DATE: 10/17/2016 SUBJECTIVE: No complaints. No changes. PHYSICAL EXAMINATION: Stable vital signs. Physical exam unchanged. She is awake, alert, confused at times. ASSESSMENT: 1. High cholesterol. 2. Hypertension. 3. Adult failure to thrive. PLAN: The patient continues to need rehab. We continue to wait on DHR to allow this to happen.
[2016-10-17] MEDS: ZYPREXA ZYDIS PO SCH (20:46)
[2016-10-17] MEDS: ARICEPT PO SCH (20:46)
[2016-10-18] MEDS: ATIVAN PO SCH ×2 (10:39→20:03)
[2016-10-18] MEDS: PRINIVIL PO SCH (10:39)
[2016-10-18] MEDS: SUDAFED PO PRN ×2 (10:40→20:03)
--- NOTE | 2016-10-18 10:47 | PROGRESS NOTE ---
DATE: 10/18/2016 SUBJECTIVE: No new complaints. Patient is noted to wheel herself up and down the nguyen with a wheelchair. PHYSICAL EXAMINATION: Vital Signs: Temperature 97, pulse 79, respiratory rate 18, blood pressure 128/85. General: Patient is well developed, well nourished. Currently in no respiratory distress. She is awake, alert, and confused at times. Neck: Supple. Cardiovascular: Regular rate. ASSESSMENT: 1. Hypertension. 2. High cholesterol. 3. Adult failure to thrive. PLAN: We will continue patient in the hospital. Continue her current medications without changes. Await DHR placement.
[2016-10-18] MEDS: ARICEPT PO SCH (20:03)
[2016-10-18] MEDS: LIPITOR PO SCH (20:03)
[2016-10-18] MEDS: ZYPREXA ZYDIS PO SCH (20:04)
[2016-10-19] MEDS: ULTRACET 37.5MG/325MG PO PRN ×2 (08:28→21:13)
[2016-10-19] MEDS: PRINIVIL PO SCH (08:28)
[2016-10-19] MEDS: IMODIUM PO PRN (08:30)
[2016-10-19] MEDS: ATIVAN PO SCH ×2 (08:30→21:12)
--- NOTE | 2016-10-19 10:45 | PROGRESS NOTE ---
DATE: 10/19/2016 SUBJECTIVE: Ms Vuong is wheeling herself up and down the nguyen in a wheelchair. She has no complaints. OBJECTIVE: Vital Signs: Blood pressure is 145/89 with a heart rate of 74, respirations are 18, temperature is 98.7 degrees oral with room air saturations of 98%. Cardiovascular: Regular rate and rhythm. S1 and S2 are appreciated. Pulmonary: Breath sounds are clear. No increased work of breathing noted. Gastrointestinal: Soft, nondistended, with bowel sounds in all 4 quadrants. ASSESSMENT: 1. Hypertension. 2. High cholesterol. 3. Adult failure to thrive. PLAN: Will continue with her current regimen. Continue her medicines. We are waiting DHR placement. Dictated by DENNIS Rose for Raphael Montero MD
[2016-10-19] MEDS: ARICEPT PO SCH (21:11)
[2016-10-19] MEDS: ZYPREXA ZYDIS PO SCH (21:11)
[2016-10-19] MEDS: LIPITOR PO SCH (21:11)
--- NOTE | 2016-10-20 08:29 | PROGRESS NOTE ---
DATE: 10/20/2016 SUBJECTIVE: Ms. Vuong is sitting in the chair in her room eating. She is watching TV. She has no complaints. OBJECTIVE: Vital Signs: Blood pressure is 115/66 with a heart rate of 65, respirations are 18, temperature is 97.9 with a room air saturation of 99%. Cardiovascular: Regular rate and rhythm. S1 and S2 appreciated. Pulmonary: Breath sounds are clear. No increased work of breathing noted. Gastrointestinal: Abdomen is soft, nontender, nondistended with bowel sounds in all 4 quadrants. Extremities: No clubbing, cyanosis, or edema. Pulses are palpable. ASSESSMENT: 1. Hypertension. 2. High cholesterol. 3. Adult failure to thrive. PLAN: Will continue with her current regimen. Continue her medications. DISPOSITION: We are waiting on DHR placement. Evidently court date is coming up in mid October. Dictated by DENNIS Rose for Raphael Montero MD
[2016-10-20] MEDS: ATIVAN PO SCH ×2 (10:05→20:27)
[2016-10-20] MEDS: PRINIVIL PO SCH (10:05)
[2016-10-20] MEDS: CLARITIN PO SCH (15:44)
[2016-10-20] MEDS: ARICEPT PO SCH (20:27)
[2016-10-20] MEDS: ZYPREXA ZYDIS PO SCH (20:28)
[2016-10-20] MEDS: LIPITOR PO SCH (20:29)
[2016-10-21] MEDS: ATIVAN PO SCH ×2 (08:55→20:41)
[2016-10-21] MEDS: PRINIVIL PO SCH (08:55)
[2016-10-21] MEDS: CLARITIN PO SCH (08:55)
--- NOTE | 2016-10-21 14:31 | PROGRESS NOTE ---
DATE: 10/21/2016 SUBJECTIVE: Ms. Vuong is wheeling in a wheelchair throughout the hospital floor. She has no complaints. OBJECTIVE: Vital Signs: Blood pressure is 117/64, with a heart rate of 73, respirations are 18, temperature is 97.7 degrees oral. Cardiovascular: Regular rate and rhythm. S1 and S2 appreciated. Pulmonary: Breath sounds are clear. No increased work of breathing noted. ASSESSMENT: 1. Hypertension. 2. High cholesterol. 3. Adult failure to thrive. PLAN: We will continue with her current regimen. Continue her medications. Once again, per disposition, we are waiting on [facility] placement. Evidently, her court date decided for mid-October. Dictated by DENNIS Rose for Raphael Montero MD
[2016-10-21] MEDS: LIPITOR PO SCH (20:41)
[2016-10-21] MEDS: ARICEPT PO SCH (20:41)
[2016-10-21] MEDS: ZYPREXA ZYDIS PO SCH (20:41)
[2016-10-21] MEDS: SUDAFED PO PRN (20:46)
[2016-10-22] MEDS: ULTRACET 37.5MG/325MG PO PRN (00:14)
[2016-10-22] MEDS ORDERED: BLISTEX MEDICATED BERRY LIP BALM TOP PRN (00:14)
[2016-10-22] MEDS: ATIVAN PO SCH ×2 (08:41→20:06)
[2016-10-22] MEDS: CLARITIN PO SCH (08:41)
[2016-10-22] MEDS: PRINIVIL PO SCH (08:41)
--- NOTE | 2016-10-22 11:23 | PROGRESS NOTE ---
DATE: 10/22/2016 SUBJECTIVE: The patient is sitting in a wheelchair, eating and watching TV. She has no complaints. OBJECTIVE: Vital Signs: Blood pressure is 153/87 with a heart rate of 72, respirations are 18, temperature is 98.4 oral with room air saturations of 98-99%. Cardiovascular: Regular rate and rhythm. S1 and S2 appreciated. Pulmonary: Breath sounds are clear. No increased work of breathing noted. Gastrointestinal: Abdomen is soft, nontender, nondistended with bowel sounds in all 4 quadrants. ASSESSMENT: 1. Hypertension. 2. High cholesterol. 3. Adult failure to thrive. PLAN: Will continue with her current regimen as before. We are waiting on placement per DHR, evidently a court date is slated in mid October. Dictated by DENNIS Rose for Raphael Montero MD
[2016-10-22] MEDS: ARICEPT PO SCH (20:06)
[2016-10-22] MEDS: ZYPREXA ZYDIS PO SCH (20:06)
[2016-10-22] MEDS: LIPITOR PO SCH (20:06)
[2016-10-23] MEDS: PRINIVIL PO SCH (08:42)
[2016-10-23] MEDS: ATIVAN PO SCH ×2 (08:42→21:05)
[2016-10-23] MEDS: ULTRACET 37.5MG/325MG PO PRN (08:42)
[2016-10-23] MEDS: CLARITIN PO SCH (08:42)
--- NOTE | 2016-10-23 10:42 | PROGRESS NOTE ---
DATE: 10/23/2016 SUBJECTIVE: This patient is sitting in a chair watching TV. She is crying at present. She is asking for her mommy and her daddy. She is also eating a snack. OBJECTIVE: Vital Signs: Blood pressure is 122/75 with a heart rate of 79, respirations are 16, temperature is 97.5 degrees oral, oxygen saturation is 98% on room air. Cardiovascular: Regular rate and rhythm. S1 and S2 appreciated. Pulmonary: Breath sounds are clear. No increased work of breathing noted. Gastrointestinal: Abdomen is soft, nontender, nondistended with bowel sounds in all 4 quadrants. Extremities: No clubbing, cyanosis, or edema. ASSESSMENT: 1. Hypertension. 2. High cholesterol. 3. Adult failure to thrive. PLAN: As before, we will continue with her current regimen. We are waiting on [facility] [employer] placement with supposedly a court date slated in mid October. Dictated by DENNIS Rose for Raphael Montero MD
[2016-10-23] MEDS: ARICEPT PO SCH (21:05)
[2016-10-23] MEDS: ZYPREXA ZYDIS PO SCH (21:05)
[2016-10-23] MEDS: LIPITOR PO SCH (21:05)
[2016-10-24] MEDS: ATIVAN PO SCH ×2 (09:54→20:41)
[2016-10-24] MEDS: CLARITIN PO SCH (09:54)
[2016-10-24] MEDS: PRINIVIL PO SCH (09:54)
--- NOTE | 2016-10-24 16:50 | PROGRESS NOTE ---
DATE: 10/24/2016 SUBJECTIVE: The patient is sitting in the chair eating/. She is calm at present. OBJECTIVE: Vital Signs: Blood pressure is 105/80 with a heart rate of 71, respirations are 16, temperature is 98.1 degrees oral with room air saturations 96%. Cardiovascular : Regular rate and rhythm. S1, S2 appreciated. Pulmonary: Breath sounds are clear. No increased work of breathing noted. Gastrointestinal: Abdomen is soft, nontender, nondistended. Bowel sounds in all 4 quadrants. ASSESSMENT: 1. Hypertension. 2. High cholesterol. 3. Adult failure to thrive. PLAN: As before. Will continue with her current regimen. We are waiting on DHR placement with court date slated sometime in mid October. Dictated by DENNIS Rose for Raphael Montero MD MTDD
[2016-10-24] MEDS: LIPITOR PO SCH (20:40)
[2016-10-24] MEDS: ZYPREXA ZYDIS PO SCH (20:40)
[2016-10-24] MEDS: ARICEPT PO SCH (20:41)
[2016-10-25] MEDS: PRINIVIL PO SCH (08:05)
[2016-10-25] MEDS: ATIVAN PO SCH ×2 (08:05→20:18)
[2016-10-25] MEDS: ULTRACET 37.5MG/325MG PO PRN (08:05)
[2016-10-25] MEDS: CLARITIN PO SCH (08:05)
--- NOTE | 2016-10-25 15:24 | PROGRESS NOTE ---
DATE: 10/25/2016 SUBJECTIVE: Patient sitting in her wheelchair, rolling herself in the hallway. No complaints voiced. OBJECTIVE: Vital signs showed a temp of 98.5 degrees, pulse 82, respirations 18, blood pressure 133/77, saturating 97% on room air. General: This is a 61-year-old female sitting in a wheelchair. HEENT: Normocephalic, atraumatic. Pupils are equal, round, reactive to light. Extraocular movements are intact. Oropharynx and nares are clear. Neck: Supple. Lungs: Clear to auscultation bilaterally with equal lung expansion and chest wall movement. Heart: Regular rate and rhythm. No murmurs, rubs, or gallops. Abdomen: Soft, nontender, nondistended. Bowel sounds are present x4 quadrants. Extremities: No clubbing, cyanosis, or edema. Neurological: The cranial nerves II through XII are grossly intact, except for her expressive aphasia and right- sided weakness from a previous cerebrovascular accident. ASSESSMENT: 1. Hypertension. 2. High cholesterol. 3. Adult failure to thrive. PLAN: We will continue with her current medication regimen. We are waiting on [facility] for placement through the court date slated for 11/09/2016. Dictated by DENNIS Waite for Raphael Montero MD
[2016-10-25] MEDS: ZYPREXA ZYDIS PO SCH (20:18)
[2016-10-25] MEDS: LIPITOR PO SCH (20:19)
[2016-10-25] MEDS: ARICEPT PO SCH (20:19)
[2016-10-26] MEDS: ATIVAN PO SCH ×2 (10:22→20:00)
[2016-10-26] MEDS: CLARITIN PO SCH (10:22)
[2016-10-26] MEDS: PRINIVIL PO SCH (10:22)
[2016-10-26] MEDS: SUDAFED PO PRN (11:25)
--- NOTE | 2016-10-26 13:20 | PROGRESS NOTE ---
DATE: 10/26/2016 SUBJECTIVE: Patient is sitting in the room watching TV. She has no complaints voiced. OBJECTIVE: Vital Signs: Blood pressure is 112/69 with a heart rate of 69, respirations are 18, temperature is 97.6 degrees oral with room air saturations of 98%. Cardiovascular: Regular rate and rhythm. S1 and S2 appreciated. Pulmonary: Breath sounds are clear. No increased work of breathing noted. Gastrointestinal: Abdomen is soft, nontender, nondistended. Bowel sounds in all 4 quadrants. Extremities: No clubbing, cyanosis, or edema. Pulses are palpable x4. ASSESSMENT: 1. Hypertension. 2. High cholesterol. 3. Adult failure to thrive. PLAN: We will continue with her current regimen. We are waiting for DHR placement with court date slated for 11/09/2016. Dictated by DENNIS Rose for Raphael Montero MD
[2016-10-26] MEDS: ZYPREXA ZYDIS PO SCH (20:00)
[2016-10-26] MEDS: ARICEPT PO SCH (20:00)
[2016-10-26] MEDS: LIPITOR PO SCH (20:00)
[2016-10-27] MEDS: CLARITIN PO SCH (09:14)
[2016-10-27] MEDS: PRINIVIL PO SCH (09:14)
[2016-10-27] MEDS: ATIVAN PO SCH ×2 (09:14→20:28)
[2016-10-27] MEDS: SUDAFED PO PRN ×2 (09:14→14:46)
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
[2016-10-27] MEDS: ARICEPT PO SCH (20:28)
[2016-10-27] MEDS: ULTRACET 37.5MG/325MG PO PRN (20:28)
[2016-10-27] MEDS: LIPITOR PO SCH (20:28)
[2016-10-27] MEDS: ZYPREXA ZYDIS PO SCH (20:29)
[2016-10-28] MEDS: ATIVAN PO SCH ×2 (08:32→20:31)
[2016-10-28] MEDS: PRINIVIL PO SCH (08:32)
[2016-10-28] MEDS: CLARITIN PO SCH (08:32)
--- NOTE | 2016-10-28 09:22 | PROGRESS NOTE ---
DATE: 10/28/2016 SUBJECTIVE: No complaints. OBJECTIVE: No changes. PHYSICAL EXAMINATION: No change. Vitals reviewed, stable, blood pressure 125/64, temp 98.4, pulse of 79. ASSESSMENT: 1. Adult failure to thrive. 2. Hypertension, stable. 3. Hyperlipidemia, stable. PLAN: Continue to await R placement, hopefully, court date is set for 11/09 and will not be postponed.
[2016-10-28] MEDS: ARICEPT PO SCH (20:31)
[2016-10-28] MEDS: ZYPREXA ZYDIS PO SCH (20:31)
[2016-10-28] MEDS: LIPITOR PO SCH (20:31)
[2016-10-29] MEDS: ULTRACET 37.5MG/325MG PO PRN ×2 (06:15→21:14)
[2016-10-29] MEDS: CLARITIN PO SCH (08:43)
[2016-10-29] MEDS: ATIVAN PO SCH ×2 (08:43→21:15)
[2016-10-29] MEDS: PRINIVIL PO SCH (08:43)
[2016-10-29] MEDS: SUDAFED PO PRN (08:48)
[2016-10-29] MEDS ORDERED: RISPERDAL ONE (09:10)
[2016-10-29] MEDS: LIPITOR PO SCH (21:14)
[2016-10-29] MEDS: ARICEPT PO SCH (21:14)
[2016-10-29] MEDS: ZYPREXA ZYDIS PO SCH (21:14)
[2016-10-30] MEDS: ULTRACET 37.5MG/325MG PO PRN (08:53)
[2016-10-30] MEDS: CLARITIN PO SCH (08:53)
[2016-10-30] MEDS: ATIVAN PO SCH ×2 (08:53→20:10)
[2016-10-30] MEDS: PRINIVIL PO SCH (08:53)
[2016-10-30 09:28] LABS: MANUAL DIFF NEEDED? NO
[2016-10-30 09:30] LABS: BASO% 0.5 % (0.0-0.8); EOS# 0.12 X1000 (0.0-0.7); EOS% 1.6 % (0.0-10.0); HEMATOCRIT 39.5 % (37.0-47.0); HEMOGLOBIN 12.3 g/dL (12.0-16.0); IMM GRAN# 0.02 X1000 (0.0-0.04); IMM GRAN% 0.3 % (0.0-0.5); LYMPH# 2.39 X1000 (1.2-3.4); LYMPH% 31.8 % (20.5-51.1); MCH 27.2 PG (27-31); MCHC 31.1 g/dL (33-37); MCV 87.4 FL (81-99); MONO# 0.39 X1000 (0.11-0.59); MONO% 5.2 % (1.7-9.3); MPV 9.9 FL (7.4-10.4); NEUT% 60.6 % (42.2-75.2); PLT 318 X1000 (130-400); RBC 4.52 XMIL (4.2-5.4)
[2016-10-30 09:59] LABS: AGAP 8; BUN 15 mg/dL (8-22); CALCIUM 9.7 mg/dL (8.8-10.2); CHLORIDE 104 mmol/L (98-107); COSMO 287; SODIUM 143 mmol/L (136-145); TCO2 32 mmol/L (25-35)
--- NOTE | 2016-10-30 10:39 | EKG Report ---
Test Performed on : 10/30/2016 10:29:09 AM Test Reason : left shoulder pain and nausea Blood Pressure : / mmHG Vent. Rate : 081 BPM Atrial Rate : 081 BPM P-R Int : 156 ms QRS Dur : 080 ms QT Int : 398 ms P-R-T Axes : 026 000 014 degrees QTc Int : 462 ms Normal sinus rhythm. Moderate voltage criteria for LVH, may be normal variant Nonspecific T wave abnormality Abnormal ECG When compared with ECG of 07-AUG-2016 09:26, QT has lengthened Confirmed by Nayan Davenport MD ([id number]) on 11/11/2016 11:39:40 AM
--- NOTE | 2016-10-30 12:19 | PROGRESS NOTE ---
DATE: 10/29/2016 SUBJECTIVE: No changes. OBJECTIVE: No changes. Vital signs reviewed. Temp 98 degrees. Pulse is 78, respiratory 16, BP 139/88.CV: Regular rate. Chest: Clear. ASSESSMENT: 1. Hypertension. 2. Hyperlipidemia. 3. Chronic failure to thrive. PLAN: We will continue to wait DHR placement. Hopefully this will occur later this month.
--- NOTE | 2016-10-30 14:56 | PROGRESS NOTE ---
DATE: 10/30/2016 SUBJECTIVE: Patient sitting in wheelchair and complained of nausea and her left shoulder hurting this morning. Otherwise, no complaints voiced. OBJECTIVE: Vital Signs: Temp 98.5 degrees, pulse 67, respirations 16, blood pressure 120/67, saturating 99% on room air. General: This is a 61-year-old female who is sitting up in her wheelchair. HEENT: Is normocephalic and atraumatic. Pupils are equal, round, reactive to light. Extraocular movements are intact. Oropharynx and nares are clear. Neck: Supple. Lungs: Clear to auscultation bilaterally. Equal lung expansion and chest wall movement. Heart: With regular rate and rhythm. No murmurs, rubs, or gallops. Abdomen: Abdomen is soft, nontender, nondistended. Bowel sounds are present x4 quadrants. Extremities: No clubbing, cyanosis, or edema. Neurological: Cranial nerves 2-12 are grossly intact except for her expressive aphasia and right-sided weakness from previous cerebrovascular accident. LABORATORY DATA: Showed a white blood cell count of 7.52, hemoglobin 12.3, hematocrit 39.5, platelets 318,000. Sodium 143, potassium 4, chloride 104, CO2 32, BUN of 15, creatinine 0.5. Glucose 127. EKG showed normal sinus rhythm at 81. ASSESSMENT: 1. Hypertension. 2. Hyperlipidemia. 3. Chronic failure to thrive. PLAN: We checked a CBC, BMP and EKG this morning just for patient's complaints of left shoulder pain and nausea ensuring that nothing metabolic was going home on and checked an EKG with no abnormal findings noted. She has had no further complaints at this time. We will continue with her current medication regimen and continue to wait for DHR placement with a court date slated for 11/09/2016 for placement. Dictated by DENNIS Waite for Raphael Montero MD
[2016-10-30] MEDS: LIPITOR PO SCH (20:10)
[2016-10-30] MEDS: ARICEPT PO SCH (20:10)
[2016-10-30] MEDS: ZYPREXA ZYDIS PO SCH (20:10)
[2016-10-31] MEDS: CLARITIN PO SCH (09:10)
[2016-10-31] MEDS: PRINIVIL PO SCH (09:10)
[2016-10-31] MEDS: ATIVAN PO SCH ×2 (09:10→21:15)
--- NOTE | 2016-10-31 14:31 | PROGRESS NOTE ---
DATE: 10/31/2016 SUBJECTIVE: Patient sitting up in a wheelchair. No complaints voiced. OBJECTIVE: Vital Signs: Temperature 97.3 degrees, pulse 75, respirations 18, blood pressure 132/73, saturating 100% on room air. General: This is a 61-year-old female who is sitting up in her wheelchair. HEENT: Normocephalic and atraumatic. Pupils are equal, round, reactive to light. The extraocular movements are intact. Oropharynx and nares are clear. Neck: Supple. Lungs: Clear to auscultation bilaterally with equal lung expansion and chest wall movement. Heart: With regular rate and rhythm. No murmurs, rubs, or gallops. Abdomen: Soft, nontender, nondistended. Bowel sounds are present x4 quadrants. Extremities: There is no clubbing, cyanosis, or edema. Neurological: The cranial nerves 2 through 12 are grossly intact except for her right-sided weakness and expressive aphasia from previous cerebrovascular accident. LABS: There are no new labs today. ASSESSMENT: 1. Hypertension. 2. Hyperlipidemia. 3. Chronic failure to thrive. PLAN: We continue to wait on DHR and her court date for placement longterm on 11/09/2016. Dictated by DENNIS Waite for Raphael Montero MD
[2016-10-31] MEDS: LIPITOR PO SCH (21:15)
[2016-10-31] MEDS: ARICEPT PO SCH (21:15)
[2016-10-31] MEDS: ZYPREXA ZYDIS PO SCH (21:15)
[2016-11-01] MEDS: ULTRACET 37.5MG/325MG PO PRN (08:30)
[2016-11-01] MEDS: ATIVAN PO SCH ×2 (08:30→21:33)
[2016-11-01] MEDS: CLARITIN PO SCH (08:30)
[2016-11-01] MEDS: PRINIVIL PO SCH (08:30)
--- NOTE | 2016-11-01 14:18 | PROGRESS NOTE ---
DATE: 11/01/2016 SUBJECTIVE: This patient is in with the wheelchair. She is wheeling around the floor throughout the halls. She has no complaints. OBJECTIVE: Vital Signs: Blood pressure is 132/73, with a heart rate of 75, respirations are , temperature is 97.3 degrees oral with room air saturation of 100. Cardiovascular: Regular rate and rhythm. S1 and S2 are appreciated. Pulmonary: Breath sounds are clear. No increased work of breathing noted. Gastrointestinal: Abdomen is soft, nontender, nondistended with bowel sounds in all 4 quadrants. Extremities: No clubbing, cyanosis, or edema. Pulses are palpable x4. ASSESSMENT: 1. Hypertension. 2. Hyperlipidemia. 3. Chronic failure to thrive. PLAN: Will continue with the current regimen. We are waiting on DHR placement with court dates cited for 11/09/2016. Dictated by DENNIS Rose for Raphael Montero MD
[2016-11-01] MEDS: ZYPREXA ZYDIS PO SCH (21:33)
[2016-11-01] MEDS: ARICEPT PO SCH (21:34)
[2016-11-01] MEDS: LIPITOR PO SCH (21:34)
--- NOTE | 2016-11-02 08:34 | PROGRESS NOTE ---
DATE: 11/02/2016 SUBJECTIVE: No new complaints. Patient is mobile in a wheelchair up and down the hospital floor. PHYSICAL: Vital Signs: Temperature 97, pulse 75, respiratory rate 18, BP 132/73, saturation 100% on room air. General: Patient well-developed, well-nourished. She is in no respiratory distress. She is awake, alert. She is at her baseline mental status. HEENT: Normocephalic. Neck: Supple. CV: Regular rate. Chest: Relatively clear. Abdomen: Soft, nondistended. Extremities: Moves all extremities. Neurologic: No changes. LABS: Stable as of 10/30. Last urine culture, negative as of September 25. ASSESSMENT: 1. Urinary tract infection, resolved. 2. Hypertension. 3. Hyperlipidemia. 4. Chronic failure to thrive. PLAN: Will continue to await DHR placement with court dates hopefully on 11/09/2016.
[2016-11-02] MEDS: CLARITIN PO SCH (09:00)
[2016-11-02] MEDS: PRINIVIL PO SCH (09:00)
[2016-11-02] MEDS: ATIVAN PO SCH ×2 (09:00→21:12)
[2016-11-02] MEDS: ULTRACET 37.5MG/325MG PO PRN (14:34)
--- NOTE | 2016-11-02 14:58 | EKG Report ---
Test Performed on : 11/02/2016 2:41:44 PM Test Reason : chest pain Blood Pressure : / mmHG Vent. Rate : 082 BPM Atrial Rate : 082 BPM P-R Int : 156 ms QRS Dur : 082 ms QT Int : 392 ms P-R-T Axes : 028 -05 029 degrees QTc Int : 457 ms Normal sinus rhythm. Voltage criteria for left ventricular hypertrophy Cannot rule out Septal infarct , age undetermined Abnormal ECG When compared with ECG of 30-OCT-2016 10:29, (Unconfirmed) No significant change was found Confirmed by Nayan Davenport MD ([id number]) on 11/11/2016 11:33:35 AM
[2016-11-02] MEDS: ARICEPT PO SCH (21:12)
[2016-11-02] MEDS: LIPITOR PO SCH (21:12)
[2016-11-02] MEDS: ZYPREXA ZYDIS PO SCH (21:12)
[2016-11-03] MEDS: ATIVAN PO SCH ×2 (09:39→20:41)
[2016-11-03] MEDS: CLARITIN PO SCH (09:40)
[2016-11-03] MEDS: PRINIVIL PO SCH (09:41)
--- NOTE | 2016-11-03 13:04 | PROGRESS NOTE ---
DATE: 11/03/2016 SUBJECTIVE: The patient has no new complaints. She is sitting in the wheelchair in the nguyen. Today, she is nonverbal. OBJECTIVE: Vital Signs: Blood pressure is 110/75 with a heart rate of 76. Respirations are 18. Temperature is 97.5 degrees oral with room air saturations of 97% to 98%. Cardiovascular: Regular rate and rhythm. S1, S2 appreciated. Pulmonary: Breath sounds are clear. No increased work of breathing noted. Gastrointestinal: Abdomen is soft, nontender, nondistended with bowel sounds in all 4 quadrants. Extremities: No clubbing, cyanosis, or edema. Calves are nontender. Pulses are palpable x4. LABORATORY AND X-RAY DATA: Labs are stable as of 10/30/2016. Last urine culture negative as of September 25. ASSESSMENT: 1. Urinary tract infection, resolved. 2. Hypertension. 3. Hyperlipidemia. 4. Chronic failure to thrive. PLAN: We are going to continue with her current treatment. Court date is slated for 11/09/2016. Hopefully DHR placement soon after. Dictated by DENNIS Rose for Shakeel Dougherty MD
[2016-11-03] MEDS: LIPITOR PO SCH (20:40)
[2016-11-03] MEDS: ZYPREXA ZYDIS PO SCH (20:40)
[2016-11-03] MEDS: ARICEPT PO SCH (20:40)
--- NOTE | 2016-11-04 08:58 | PROGRESS NOTE ---
DATE: 11/04/2016 SUBJECTIVE: No new complaints. PHYSICAL EXAMINATION: Vital Signs: Stable, reviewed. Temp 98 degrees. Pulse 78. Respiratory 18. BP 126/76. General: Patient is lying in bed. She is awake, alert. She is in no distress. CV: Regular rate. Chest: Clear. ASSESSMENT: 1. Hypertension. 2. Hyperlipidemia. 3. Chronic failure to thrive. PLAN: We will continue to follow. DHR placement for court dates are currently scheduled for 11/09/2016.
[2016-11-04] MEDS: CLARITIN PO SCH (09:15)
[2016-11-04] MEDS: PRINIVIL PO SCH (09:15)
[2016-11-04] MEDS: ATIVAN PO SCH ×2 (09:15→21:00)
[2016-11-04] MEDS: LIPITOR PO SCH (21:00)
[2016-11-04] MEDS: ARICEPT PO SCH (21:00)
[2016-11-04] MEDS: ZYPREXA ZYDIS PO SCH (21:00)
[2016-11-05] MEDS: ULTRACET 37.5MG/325MG PO PRN (04:54)
[2016-11-05] MEDS: ATIVAN PO SCH ×2 (09:10→20:18)
[2016-11-05] MEDS: CLARITIN PO SCH (09:10)
--- NOTE | 2016-11-05 14:13 | PROGRESS NOTE ---
DATE: 11/05/2016 SUBJECTIVE: She has no new complaints. She is sitting at the bedside watching TV. OBJECTIVE: Vital Signs: Blood pressure is 118/75, heart rate of 85, respirations are 20, temperature is 97.8 degrees oral with room air saturations of 98%. Cardiovascular: Regular rate and rhythm. S1, S2 appreciated. Pulmonary: Breath sounds are clear. No increased work of breathing noted. Gastrointestinal: Abdomen is soft, nontender, nondistended. Bowel sounds in all 4 quadrants. Extremities: No clubbing, cyanosis, or edema. Pulses are palpable. ASSESSMENT: 1. Hypertension. 2. Hyperlipidemia. 3. Chronic failure to thrive. We will continue to follow. We will continue with her regimen. Of note, DHR placement for court dates are currently scheduled for 11/09/2016. Dictated by DENNIS Rose for Shakeel Dougherty MD
[2016-11-05] MEDS: ZYPREXA ZYDIS PO SCH (20:18)
[2016-11-05] MEDS: LIPITOR PO SCH (20:18)
[2016-11-05] MEDS: ARICEPT PO SCH (20:18)
[2016-11-06] MEDS: ATIVAN PO SCH ×2 (08:14→21:14)
[2016-11-06] MEDS: CLARITIN PO SCH (08:14)
[2016-11-06] MEDS: SUDAFED PO PRN ×2 (08:21→21:14)
--- NOTE | 2016-11-06 10:20 | PROGRESS NOTE ---
DATE: 11/06/2016 SUBJECTIVE: Patient without complaints. PHYSICAL EXAMINATION: Physical unchanged.Vital Signs: Temperature 98 degrees. Pulse 61. Respiratory 18. BP 122/83. General: She is awake, alert. She is sitting in a wheelchair. She is in no respiratory distress. ASSESSMENT: 1. Hypertension. 2. Hyperlipidemia. 3. Chronic failure to thrive. PLAN: Continue to await DHR placement with court date on 11/09/2016.
[2016-11-06] MEDS: LIPITOR PO SCH (21:13)
[2016-11-06] MEDS: ARICEPT PO SCH (21:14)
[2016-11-06] MEDS: ZYPREXA ZYDIS PO SCH (21:14)
[2016-11-07] MEDS: CLARITIN PO SCH (09:08)
[2016-11-07] MEDS: ATIVAN PO SCH ×2 (09:08→22:20)
--- NOTE | 2016-11-07 10:29 | PROGRESS NOTE ---
DATE: 11/07/2016 SUBJECTIVE: The patient is without complaints. She is sitting in wheelchair, watching TV. OBJECTIVE: Vital Signs: Blood pressure is 121/76, heart rate of 83, respirations are 18, temperature is 97.6 degrees oral, with room air saturations of 99%. Cardiovascular: Regular rate and rhythm. S1 and S2 appreciated. Pulmonary: Breath sounds are clear with no increased work of breathing noted. Gastrointestinal: Abdomen is soft, nontender, nondistended. Bowel sounds in all 4 quadrants. Extremities: No clubbing, cyanosis, or edema. Pulses are palpable. ASSESSMENT: 1. Hypertension. 2. Hyperlipidemia. 3. Chronic failure to thrive. PLAN: Will continue to wait DHR placement with court date slated for 11/09/2016. Dictated by DENNIS Rose for Shakeel Dougherty MD
[2016-11-07] MEDS: SUDAFED PO PRN (15:49)
[2016-11-07] MEDS: ZYPREXA ZYDIS PO SCH (22:20)
[2016-11-07] MEDS: ARICEPT PO SCH (22:20)
[2016-11-07] MEDS: LIPITOR PO SCH (22:20)
[2016-11-08] MEDS: ATIVAN PO SCH ×2 (09:05→20:04)
[2016-11-08] MEDS: CLARITIN PO SCH (09:05)
--- NOTE | 2016-11-08 09:42 | PROGRESS NOTE ---
DATE: 11/08/2016 SUBJECTIVE: Patient without complaints. OBJECTIVE: Physical exam unchanged.CV: Regular rate. Chest: Relatively clear. Abdomen: Soft. ASSESSMENT: 1. Hypertension. 2. Hyperlipidemia. 3. Chronic failure to thrive. PLAN: We will continue current regimen. We are waiting DHR placement with court date hopefully tomorrow.
[2016-11-08] MEDS: LIPITOR PO SCH (20:04)
[2016-11-08] MEDS: ARICEPT PO SCH (20:04)
[2016-11-08] MEDS: ZYPREXA ZYDIS PO SCH (20:05)
[2016-11-09] MEDS: CLARITIN PO SCH (08:51)
[2016-11-09] MEDS: ATIVAN PO SCH ×2 (08:51→22:13)
[2016-11-09] MEDS: ARICEPT PO SCH (22:13)
[2016-11-09] MEDS: ZYPREXA ZYDIS PO SCH (22:13)
[2016-11-09] MEDS: LIPITOR PO SCH (22:13)
[2016-11-10] MEDS: CLARITIN PO SCH (08:35)
[2016-11-10] MEDS: ATIVAN PO SCH ×2 (08:36→20:41)
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
[2016-11-10] MEDS: ARICEPT PO SCH (20:41)
[2016-11-10] MEDS: LIPITOR PO SCH (20:42)
[2016-11-10] MEDS: ZYPREXA ZYDIS PO SCH (20:42)
[2016-11-11] MEDS: ATIVAN PO SCH ×2 (09:21→23:03)
[2016-11-11] MEDS: CLARITIN PO SCH (09:21)
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
[2016-11-11] MEDS: LIPITOR PO SCH (23:03)
[2016-11-11] MEDS: ARICEPT PO SCH (23:03)
[2016-11-11] MEDS: ZYPREXA ZYDIS PO SCH (23:03)
[2016-11-12] MEDS: CLARITIN PO SCH (08:49)
[2016-11-12] MEDS: ATIVAN PO SCH ×2 (08:49→21:19)
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
[2016-11-12] MEDS: ZYPREXA ZYDIS PO SCH (21:18)
[2016-11-12] MEDS: ARICEPT PO SCH (21:18)
[2016-11-12] MEDS: LIPITOR PO SCH (21:19)
[2016-11-13] MEDS: ATIVAN PO SCH ×2 (10:11→21:52)
[2016-11-13] MEDS: CLARITIN PO SCH (10:11)
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
[2016-11-13] MEDS ORDERED: IMODIUM PO ONE (17:17)
[2016-11-13] MEDS: LIPITOR PO SCH (21:52)
[2016-11-13] MEDS: ARICEPT PO SCH (21:52)
[2016-11-13] MEDS: ZYPREXA ZYDIS PO SCH (21:52)
[2016-11-14] MEDS: CLARITIN PO SCH (08:41)
[2016-11-14] MEDS: ATIVAN PO SCH ×2 (08:41→21:02)
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
[2016-11-14] MEDS: LIPITOR PO SCH (21:02)
[2016-11-14] MEDS: ZYPREXA ZYDIS PO SCH (21:02)
[2016-11-14] MEDS: ARICEPT PO SCH (21:02)
[2016-11-15] MEDS: ATIVAN PO SCH ×2 (08:35→21:33)
[2016-11-15] MEDS: CLARITIN PO SCH (08:35)
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
[2016-11-15] MEDS: ZYPREXA ZYDIS PO SCH (21:32)
[2016-11-15] MEDS: ARICEPT PO SCH (21:33)
[2016-11-15] MEDS: LIPITOR PO SCH (21:33)
[2016-11-16] MEDS: CLARITIN PO SCH (08:17)
[2016-11-16] MEDS: ATIVAN PO SCH ×2 (08:17→20:56)
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
[2016-11-16] MEDS: LIPITOR PO SCH (20:56)
[2016-11-16] MEDS: ZYPREXA ZYDIS PO SCH (20:56)
[2016-11-16] MEDS: ARICEPT PO SCH (20:56)
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
[2016-11-17] MEDS: CLARITIN PO SCH (08:20)
[2016-11-17] MEDS: ATIVAN PO SCH ×2 (08:20→21:06)
[2016-11-17] MEDS: LIPITOR PO SCH (21:06)
[2016-11-17] MEDS: ZYPREXA ZYDIS PO SCH (21:07)
[2016-11-17] MEDS: ARICEPT PO SCH (21:07)
--- NOTE | 2016-11-18 08:32 | PROGRESS NOTE ---
DATE: 11/18/2016 SUBJECTIVE: Patient without new complaints. OBJECTIVE/PHYSICAL EXAMINATION: Unchanged. Vital signs stable. ASSESSMENT: 1. Hypertension. 2. Failure to thrive. 3. High cholesterol. PLAN: Continue to await court-appointed guardianship so we can transfer to rehab.
[2016-11-18] MEDS: TYLENOL PO PRN (08:50)
[2016-11-18] MEDS: ATIVAN PO SCH (08:50)
[2016-11-18] MEDS: CLARITIN PO SCH (08:51)
[2016-11-18] MEDS: LIPITOR PO SCH (20:34)
[2016-11-18] MEDS: ZYPREXA ZYDIS PO SCH (20:34)
[2016-11-18] MEDS: ARICEPT PO SCH (20:34)
[2016-11-19] MEDS: CLARITIN PO SCH (08:12)
[2016-11-19] MEDS: ATIVAN PO PRN ×2 (08:13→21:00)
--- NOTE | 2016-11-19 10:21 | PROGRESS NOTE ---
DATE: 11/19/2016 SUBJECTIVE: Patient without new complaints. No changes. OBJECTIVE: Vital Signs: Stable. Temperature 98.0 degrees, blood pressure 156/73. General: Patient is awake, alert. She is sitting in the bed in no distress. Neck: Supple. CV: Regular rate. ASSESSMENT: 1. Hypertension. 2. Hyperlipidemia. 3. Chronic failure to thrive. PLAN: We will continue to await DHR placement.
[2016-11-19] MEDS: LIPITOR PO SCH (21:00)
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
[2016-11-20] MEDS: CLARITIN PO SCH (08:46)
[2016-11-20] MEDS: ATIVAN PO PRN ×2 (08:46→21:27)
[2016-11-20] MEDS: LIPITOR PO SCH (21:27)
--- NOTE | 2016-11-21 12:18 | PROGRESS NOTE ---
DATE: 11/21/2016 SUBJECTIVE: No complaints. OBJECTIVE: Vital Signs: Unchanged. General: The patient is lying in bed quietly. She is easily awakened. ASSESSMENT: 1. Failure to thrive. 2. Hypertension. 3. High cholesterol. PLAN: Continue to wait for DHR and placement.
[2016-11-21] MEDS: LIPITOR PO SCH (20:09)
[2016-11-21] MEDS: ATIVAN PO PRN (20:09)
[2016-11-21] MEDS: TYLENOL PO PRN (20:25)
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
[2016-11-22] MEDS: LIPITOR PO SCH (21:47)
[2016-11-23] MEDS: TYLENOL PO PRN (03:27)
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
[2016-11-23] MEDS: LIPITOR PO SCH (20:53)
[2016-11-23] MEDS: ATIVAN PO PRN (20:53)
[2016-11-24] MEDS: LIPITOR PO SCH (20:23)
[2016-11-24] MEDS: ATIVAN PO PRN (20:23)
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
[2016-11-25] MEDS: LIPITOR PO SCH (21:16)
[2016-11-25] MEDS: ATIVAN PO PRN (21:16)
[2016-11-26] MEDS: TYLENOL PO PRN (05:11)
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
[2016-11-26] MEDS: LIPITOR PO SCH (21:05)
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
[2016-11-27] MEDS: LIPITOR PO SCH (22:40)
[2016-11-28] MEDS ORDERED: BLISTEX MEDICATED BERRY LIP BALM TOP PRN (08:37)
[2016-11-28] MEDS ORDERED: ZOFRAN ODT PO PRN (08:38)
[2016-11-28] MEDS ORDERED: SUDAFED PO PRN (08:38)
[2016-11-28] MEDS: ATIVAN PO SCH ×2 (09:16→21:29)
[2016-11-28] MEDS: PRINIVIL PO SCH (09:16)
[2016-11-28] MEDS: CLARITIN PO SCH (09:16)
[2016-11-28] MEDS: ULTRACET 37.5MG/325MG PO PRN ×2 (10:30→21:28)
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
[2016-11-28] MEDS: LIPITOR PO SCH (21:28)
[2016-11-28] MEDS: ARICEPT PO SCH (21:29)
[2016-11-28] MEDS: ZYPREXA ZYDIS PO SCH (21:29)
[2016-11-29] MEDS: CLARITIN PO SCH (08:55)
[2016-11-29] MEDS: PRINIVIL PO SCH (08:55)
[2016-11-29] MEDS: ATIVAN PO SCH ×2 (08:55→21:35)
[2016-11-29] MEDS: ULTRACET 37.5MG/325MG PO PRN ×2 (09:02→21:35)
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
[2016-11-29] MEDS: ZYPREXA ZYDIS PO SCH (21:35)
[2016-11-29] MEDS: ARICEPT PO SCH (21:35)
[2016-11-29] MEDS: LIPITOR PO SCH (21:35)
[2016-11-30] MEDS: ULTRACET 37.5MG/325MG PO PRN (05:35)
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
[2016-11-30] MEDS: PRINIVIL PO SCH (09:23)
[2016-11-30] MEDS: ATIVAN PO SCH ×2 (09:23→21:35)
[2016-11-30] MEDS: TYLENOL PO PRN (09:24)
[2016-11-30] MEDS: CLARITIN PO SCH (09:24)
[2016-11-30] MEDS ORDERED: COLACE PO ONE (20:09)
[2016-11-30] MEDS: ZYPREXA ZYDIS PO SCH (21:35)
[2016-11-30] MEDS: LIPITOR PO SCH (21:35)
[2016-11-30] MEDS: ARICEPT PO SCH (21:36)
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
[2016-12-01] MEDS: CLARITIN PO SCH (08:25)
[2016-12-01] MEDS: PRINIVIL PO SCH (08:25)
[2016-12-01] MEDS: ATIVAN PO SCH ×2 (08:26→20:16)
[2016-12-01] MEDS: LIPITOR PO SCH (20:15)
[2016-12-01] MEDS: ARICEPT PO SCH (20:16)
[2016-12-01] MEDS: ZYPREXA ZYDIS PO SCH (20:16)
--- NOTE | 2016-12-02 08:35 | PROGRESS NOTE ---
DATE: 12/02/2016 SUBJECTIVE: Patient without complaints. OBJECTIVE/PHYSICAL: No change. Vital signs reviewed. BP 104/64 to 144/91. General: She is awake, alert. She is in no distress, sitting in the wheelchair. ASSESSMENT: 1. Hypertension. 2. Hyperlipidemia. 3. Chronic failure to thrive. PLAN: Continue to await placement decision by the state court system.
[2016-12-02] MEDS: ATIVAN PO SCH ×2 (09:36→20:10)
[2016-12-02] MEDS: PRINIVIL PO SCH (09:36)
[2016-12-02] MEDS: CLARITIN PO SCH (09:36)
[2016-12-02] MEDS: ULTRACET 37.5MG/325MG PO PRN (09:40)
[2016-12-02] MEDS: ZYPREXA ZYDIS PO SCH (20:10)
[2016-12-02] MEDS: ARICEPT PO SCH (20:10)
[2016-12-02] MEDS: LIPITOR PO SCH (20:11)
[2016-12-03] MEDS: TYLENOL PO PRN (06:23)
--- NOTE | 2016-12-03 09:03 | PROGRESS NOTE ---
DATE: 12/03/2016 SUBJECTIVE: Patient without any new complaints. She still has multiple episodes of crying spells. OBJECTIVE: Vital Signs: Reviewed. Stable with no changes. CV: Regular rate. Chest: Clear. ASSESSMENT: 1. Adult failure to thrive. 2. Chronic hypertension. 3. Chronic hyperlipidemia. PLAN: We will attempt to start patient on Nuedexta today to see if this helps her intermittent laughing and crying spells. Further orders as needed.
[2016-12-03] MEDS: ATIVAN PO SCH ×3 (09:43→21:00)
[2016-12-03] MEDS: CLARITIN PO SCH (09:43)
[2016-12-03] MEDS: PRINIVIL PO SCH (09:44)
[2016-12-03] MEDS: ULTRACET 37.5MG/325MG PO PRN ×2 (09:45→19:55)
[2016-12-03] MEDS: NON-FORMULARY MED PO SCH (09:46)
[2016-12-03] MEDS: LIPITOR PO SCH ×2 (19:55→21:00)
[2016-12-03] MEDS: ARICEPT PO SCH ×2 (19:55→21:00)
[2016-12-03] MEDS: ZYPREXA ZYDIS PO SCH (19:55)
[2016-12-04] MEDS: ZYPREXA ZYDIS PO SCH ×3 (02:41→20:10)
[2016-12-04] MEDS: PRINIVIL PO SCH (09:11)
[2016-12-04] MEDS: ATIVAN PO SCH ×3 (09:11→20:09)
[2016-12-04] MEDS: CLARITIN PO SCH (09:11)
[2016-12-04] MEDS: NON-FORMULARY MED PO SCH (09:12)
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
[2016-12-04] MEDS: ARICEPT PO SCH ×2 (19:42→20:09)
[2016-12-04] MEDS: LIPITOR PO SCH ×2 (19:42→20:09)
[2016-12-05] MEDS: PRINIVIL PO SCH (09:15)
[2016-12-05] MEDS: CLARITIN PO SCH (09:15)
[2016-12-05] MEDS: ATIVAN PO SCH ×2 (09:15→22:22)
[2016-12-05] MEDS: NON-FORMULARY MED PO SCH (09:15)
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
[2016-12-05] MEDS ORDERED: ZYPREXA ONE (22:17)
[2016-12-05] MEDS ORDERED: ATIVAN ONE (22:17)
[2016-12-05] MEDS ORDERED: LIPITOR ONE (22:18)
[2016-12-05] MEDS: ARICEPT PO SCH (22:20)
[2016-12-05] MEDS: LIPITOR PO SCH (22:27)
[2016-12-05] MEDS: ZYPREXA ZYDIS PO SCH (22:27)
--- NOTE | 2016-12-06 08:28 | PROGRESS NOTE ---
DATE: 12/06/2016 SUBJECTIVE: Patient without complaints. Still has multiple crying episodes. PHYSICAL EXAMINATION: Vital Signs: Reviewed. Temperature 98 degrees, pulse 72, respiratory rate 18, BP 120/74, saturating 100% on room air. General: Patient is well developed, well nourished. She is currently in no respiratory distress. She is awake, alert. Neck: Supple. Chest: Clear. ASSESSMENT: 1. Adult failure to thrive. 2. Hypertension. 3. Hyperlipidemia. 4. Frequent crying spells. PLAN: Nuedexta was added to see if this would help with her crying spells. She will continue her other care and await placement.
[2016-12-06] MEDS: ATIVAN PO SCH ×2 (09:46→22:03)
[2016-12-06] MEDS: NON-FORMULARY MED PO SCH (09:46)
[2016-12-06] MEDS: CLARITIN PO SCH (09:46)
[2016-12-06] MEDS: PRINIVIL PO SCH (18:09)
[2016-12-06] MEDS: LIPITOR PO SCH (22:03)
[2016-12-06] MEDS: ARICEPT PO SCH (22:03)
[2016-12-06] MEDS: ZYPREXA ZYDIS PO SCH (22:03)
[2016-12-07] MEDS ORDERED: ATIVAN PO PRN (09:16)
[2016-12-07] MEDS ORDERED: TYLENOL PO PRN (09:17)
[2016-12-07] MEDS ORDERED: SUDAFED PO PRN (09:17)
[2016-12-07] MEDS ORDERED: BLISTEX MEDICATED BERRY LIP BALM TOP PRN (09:17)
[2016-12-07] MEDS ORDERED: ZOFRAN ODT PO PRN (09:18)
[2016-12-07] MEDS ORDERED: ULTRACET 37.5MG/325MG PO PRN (09:18)
[2016-12-07] MEDS: ATIVAN PO SCH ×2 (10:00→20:45)
[2016-12-07] MEDS: PRINIVIL PO SCH (10:00)
[2016-12-07] MEDS: CLARITIN PO SCH (10:00)
[2016-12-07] MEDS: NON-FORMULARY MED PO SCH (10:01)
--- NOTE | 2016-12-07 16:09 | PROGRESS NOTE ---
DATE: 12/07/2016 SUBJECTIVE: Patient up in wheelchair, rolling self in hallway. OBJECTIVE: Vital Signs: Temperature 97.4 degrees, pulse 63, respirations 18, blood pressure 140/87. General: This is a 61-year-old female who is in the wheelchair, watching TV and rolling herself in the hallway. HEENT: Normocephalic, atraumatic. Pupils are equal, round, reactive to light. Extraocular movements are intact. Oropharynx and nares are clear. Neck: Supple. Lungs: Clear to auscultation bilaterally with equal lung expansion. Heart: With regular rate and rhythm. No murmurs, rubs, or gallops. Abdomen: Soft, nontender, nondistended. Bowel sounds are present x4 quadrants. Extremities: No clubbing, cyanosis, or edema. Neurological: No change. LABS: No new labs today. ASSESSMENT: 1. Adult failure to thrive. 2. Hypertension. 3. Hyperlipidemia. 4. Frequent crying spells. PLAN: She has not been noted to be crying today. She was started on Nuedexta to help with her crying spells. We continue to wait for placement through the court systems and financials to be set up through the head cd reactor operator's office and awaiting a return call from the head cd reactor operator's office at this time. Dictated by DENNIS Waite for Raphael Montero MD
[2016-12-07] MEDS: ZYPREXA ZYDIS PO SCH (20:45)
[2016-12-07] MEDS: LIPITOR PO SCH (20:45)
[2016-12-07] MEDS: ARICEPT PO SCH (20:45)
[2016-12-08] MEDS: PRINIVIL PO SCH (08:25)
[2016-12-08] MEDS: NON-FORMULARY MED PO SCH (08:25)
[2016-12-08] MEDS: CLARITIN PO SCH (08:25)
[2016-12-08] MEDS: ATIVAN PO SCH ×2 (08:25→22:00)
--- NOTE | 2016-12-08 11:12 | PROGRESS NOTE ---
DATE: 12/08/2016 SUBJECTIVE: Patient up in wheelchair. No complaints voiced. OBJECTIVE: Vital Signs: Showed a pulse of 77, respirations 20, blood pressure 119/75, satting 95% on room air. General: This is a 61-year-old female, who is up in her wheelchair. HEENT: Normocephalic and atraumatic. Pupils are equal, round, reactive to light. Extraocular movements are intact. Oropharynx and nares are clear. Neck: Supple. Lungs: Clear to auscultation bilaterally with equal lung expansion and chest wall movement. Heart: With regular rate and rhythm. No murmurs, rubs, or gallops. Abdomen: Soft, nontender, nondistended. Bowel sounds are present x4 quadrants. Extremities: There is no clubbing, cyanosis, or edema. Neurological: The cranial nerves 2-12 are grossly intact, except for her expressive aphasia and right-sided weakness from a previous cerebrovascular accident. LABS: No new labs today. ASSESSMENT: 1. Adult failure to thrive. 2. Hypertension. 3. Hyperlipidemia. 4. Frequent crying spells. PLAN: She is doing well on the Nuedexta that was started 2 days ago. Have not noted any further crying spells in the morning. We continue to await for placement through the court system and financial's to be set up through the filtration supervisor office and awaiting return calls for discharge to rehab. Dictated by DENNIS Waite for Shakeel Dougherty MD
[2016-12-08] MEDS: ARICEPT PO SCH (21:59)
[2016-12-08] MEDS: LIPITOR PO SCH (21:59)
[2016-12-08] MEDS: ZYPREXA ZYDIS PO SCH (22:02)
[2016-12-09] MEDS: PRINIVIL PO SCH (08:14)
[2016-12-09] MEDS: NON-FORMULARY MED PO SCH (08:14)
[2016-12-09] MEDS: ATIVAN PO SCH ×2 (08:14→20:47)
[2016-12-09] MEDS: CLARITIN PO SCH (08:14)
--- NOTE | 2016-12-09 09:15 | PROGRESS NOTE ---
DATE: 12/09/2016 SUBJECTIVE: Patient without complaints. PHYSICAL EXAMINATION: Vital signs: Unchanged. General: The patient is sitting in the bed currently. She is awake, alert, in no distress. ASSESSMENT: 1. Hypertension. 2. High cholesterol. 3. Adult failure to thrive. PLAN: Will continue to await placement. No changes in her medications currently.
[2016-12-09] MEDS: ARICEPT PO SCH (20:47)
[2016-12-09] MEDS: ZYPREXA ZYDIS PO SCH (20:47)
[2016-12-09] MEDS: LIPITOR PO SCH (20:48)
[2016-12-10] MEDS: PRINIVIL PO SCH (08:39)
[2016-12-10] MEDS: NON-FORMULARY MED PO SCH (08:39)
[2016-12-10] MEDS: ATIVAN PO SCH ×2 (08:41→21:16)
[2016-12-10] MEDS: CLARITIN PO SCH (08:41)
--- NOTE | 2016-12-10 11:19 | PROGRESS NOTE ---
DATE: 12/10/2016 SUBJECTIVE: The patient is up in wheelchair. No complaints voiced. OBJECTIVE: Vital Signs: Temperature 97.4 degrees, pulse 83, respirations 18, blood pressure 132/83, saturating 97% on room air. General: This is a 61-year-old female who is sitting up in the wheelchair. HEENT: Normocephalic and atraumatic. Pupils are equal, round, reactive to light. Extraocular movements are intact. Oropharynx and nares are clear. Neck: Supple. Lungs: Clear to auscultation bilaterally with equal lung expansion and chest wall movement. Heart: With regular rate and rhythm. No murmurs, rubs, or gallops. Abdomen: Soft, nontender, nondistended. Bowel sounds are present x4 quadrants. Extremities: There is no clubbing, cyanosis. Neurological: There is no change. ASSESSMENT: 1. Hypertension. 2. Hypercholesterolemia. 3. Adult failure to thrive. PLAN: We continue to await placement for this patient with no changes in our plan of care. Dictated by DENNIS Waite for Raphael Montero MD
[2016-12-10] MEDS: ARICEPT PO SCH (21:16)
[2016-12-10] MEDS: LIPITOR PO SCH (21:16)
[2016-12-10] MEDS: ZYPREXA ZYDIS PO SCH (21:16)
[2016-12-11] MEDS: PRINIVIL PO SCH (08:19)
[2016-12-11] MEDS: NON-FORMULARY MED PO SCH (08:19)
[2016-12-11] MEDS: CLARITIN PO SCH (08:19)
[2016-12-11] MEDS: ATIVAN PO SCH ×2 (08:19→20:07)
--- NOTE | 2016-12-11 12:22 | PROGRESS NOTE ---
DATE: 12/11/2016 SUBJECTIVE: Patient up in a wheelchair rolling in hallway. No complaints voiced. OBJECTIVE: Vital signs: Temp 97.6, pulse 70, respirations 18, blood pressure 125/73, satting 100% on room air. General: This is a 61-year-old female who is up in her wheelchair rolling in hallway. HEENT: Normocephalic and atraumatic. The pupils are equal, round and reactive to light. The extraocular movements are intact. The oropharynx and nares are clear. Neck: Supple. Lungs: Clear to auscultation bilaterally with equal lung expansion and chest wall movement. Heart: Regular rate and rhythm, no murmurs, rubs, or gallops. Abdomen: Soft, nontender, nondistended. Bowel sounds are present x4 quadrants. Extremities: There is no clubbing, cyanosis, or edema. Neurological: No change. LABORATORY DATA: No new labs. ASSESSMENT AND PLAN: 1. Hypertension. 2. Hypercholesterolemia. 3. Adult failure to thrive. We continue to await placement for this patient with no changes in our plan of care. Dictated by DENNIS Waite for Raphael Montero MD
[2016-12-11] MEDS: LIPITOR PO SCH (20:07)
[2016-12-11] MEDS: ARICEPT PO SCH (20:07)
[2016-12-11] MEDS: ZYPREXA ZYDIS PO SCH (20:07)
[2016-12-12] MEDS: PRINIVIL PO SCH (08:33)
[2016-12-12] MEDS: NON-FORMULARY MED PO SCH (08:33)
[2016-12-12] MEDS: CLARITIN PO SCH (08:33)
[2016-12-12] MEDS: ATIVAN PO SCH ×2 (08:33→20:32)
--- NOTE | 2016-12-12 13:53 | PROGRESS NOTE ---
DATE: 12/12/2016 SUBJECTIVE: Patient up in wheelchair sitting and watching TV in room. OBJECTIVE: Vital Signs: Temperature 98 degrees, pulse 79, respirations 18, blood pressure 146/68, saturating 96% on room air. General: This is a 61-year-old female sitting in her chair watching TV in her room. HEENT: Normocephalic and atraumatic. Pupils are equal, round, reactive to light. Extraocular movements are intact. The oropharynx and nares are clear. Neck: Supple. Lungs: Clear to auscultation bilaterally with equal lung expansion and chest wall movement. Heart: With regular rate and rhythm. No murmurs, rubs, or gallops. Abdomen: Soft, nontender, nondistended. Bowel sounds are present x4 quadrants. Extremities: There is no clubbing, cyanosis, or edema. Neurological: The cranial nerves 2-12 were grossly intact except for her expressive aphasia and right-sided weakness from a previous stroke. LABS: No new labs today. ASSESSMENT: 1. Hypertension. 2. Hypercholesterolemia. 3. Adult failure to thrive. PLAN: We continue await placement for this patient with no changes in our plan of care. Dictated by DENNIS Waite for Raphael Montero MD
[2016-12-12] MEDS: LIPITOR PO SCH (20:31)
[2016-12-12] MEDS: ZYPREXA ZYDIS PO SCH (20:31)
[2016-12-12] MEDS: ARICEPT PO SCH (20:32)
[2016-12-13] MEDS: ATIVAN PO SCH ×2 (08:05→21:10)
[2016-12-13] MEDS: PRINIVIL PO SCH (08:05)
[2016-12-13] MEDS: CLARITIN PO SCH (08:05)
[2016-12-13] MEDS: NON-FORMULARY MED PO SCH (08:05)
--- NOTE | 2016-12-13 20:00 | PROGRESS NOTE ---
DATE: 12/13/2016 SUBJECTIVE: This patient is sitting up in the wheelchair, wheeling in the halls with no complaints. OBJECTIVE: Vital Signs: Blood pressure is 124/75, heart rate 67, respirations 18, temperature is 97.5 degrees oral, with room air saturations of 97% to 98%. Cardiovascular: Regular rate and rhythm. S1, S2 appreciated. Pulmonary: Breath sounds are clear. No increased work of breathing noted. Gastrointestinal: Abdomen is soft, nontender, nondistended. Bowel sounds in all 4 quadrants. Extremities: No clubbing, cyanosis, or edema. Pulses are palpable x4. Neurologic: She does have a right-sided weakness from a previous stroke. LABS: No new labs today. ASSESSMENT: 1. Hypertension. 2. Hypercholesterolemia. 3. Adult failure to thrive. PLAN: We will continue with her current regimen. We continue to await placement for this patient. Dictated by DENNIS Rose for Raphael Montero MD
[2016-12-13] MEDS: ZYPREXA ZYDIS PO SCH (21:10)
[2016-12-13] MEDS: ARICEPT PO SCH (21:11)
[2016-12-13] MEDS: LIPITOR PO SCH (21:11)
[2016-12-14] MEDS: NON-FORMULARY MED PO SCH (10:29)
[2016-12-14] MEDS: CLARITIN PO SCH (10:29)
[2016-12-14] MEDS: PRINIVIL PO SCH (10:29)
[2016-12-14] MEDS: ATIVAN PO SCH ×2 (10:29→20:38)
--- NOTE | 2016-12-14 13:03 | PROGRESS NOTE ---
DATE: 12/14/2016 SUBJECTIVE: Patient without new complaints. She is still ambulating in the hallway as she has been for the past several months. OBJECTIVE: Vital Signs: Reviewed. Unchanged. BP 124/75, saturation 97% on room air. Pulse 67. General: She is awake, alert. She is in no distress. Cardiovascular: Regular rate. Chest: Relatively clear. ASSESSMENT: 1. Hypertension. 2. Hypercholesterolemia. 3. Adult failure to thrive. 4. Others. PLAN: We will continue her current medications. Continue to follow vital signs. Continue to await [facility] placement.
[2016-12-14] MEDS: ZYPREXA ZYDIS PO SCH (20:38)
[2016-12-14] MEDS: LIPITOR PO SCH (20:38)
[2016-12-14] MEDS: ARICEPT PO SCH (20:39)
[2016-12-15] MEDS: ATIVAN PO SCH ×2 (09:57→20:41)
[2016-12-15] MEDS: PRINIVIL PO SCH (09:57)
[2016-12-15] MEDS: NON-FORMULARY MED PO SCH (09:58)
[2016-12-15] MEDS: CLARITIN PO SCH (10:58)
--- NOTE | 2016-12-15 11:10 | PROGRESS NOTE ---
DATE: 12/15/2016 SUBJECTIVE: No complaints. OBJECTIVE: No changes. Vital signs reviewed, stable. Physical examination unchanged. ASSESSMENT: 1. Hypertension. 2. Hypercholesterolemia. PLAN: We will continue to await rehab placement.
[2016-12-15] MEDS: ARICEPT PO SCH (20:40)
[2016-12-15] MEDS: LIPITOR PO SCH (20:41)
[2016-12-15] MEDS: ZYPREXA ZYDIS PO SCH (20:41)
[2016-12-16] MEDS: CLARITIN PO SCH (09:04)
[2016-12-16] MEDS: PRINIVIL PO SCH (09:04)
[2016-12-16] MEDS: ATIVAN PO SCH ×2 (09:04→22:15)
--- NOTE | 2016-12-16 09:18 | PROGRESS NOTE ---
DATE: 12/16/2016 SUBJECTIVE: Patient without complaints. OBJECTIVE: Physical Examination: No physical changes noted. Vital Signs: Reviewed and stable. General: The patient is lying in bed. She is awake, alert. ASSESSMENT: 1. Hypertension. 2. Hypercholesterolemia. PLAN: Continue to await placement.
[2016-12-16] MEDS: NON-FORMULARY MED PO SCH (10:13)
[2016-12-16] MEDS: ARICEPT PO SCH (22:15)
[2016-12-16] MEDS: ZYPREXA ZYDIS PO SCH (22:15)
[2016-12-16] MEDS: LIPITOR PO SCH (22:15)
--- NOTE | 2016-12-17 08:44 | PROGRESS NOTE ---
DATE: 12/17/2016 SUBJECTIVE: The patient without complaints. She is noted to be sitting in the room in a wheelchair watching television. OBJECTIVE: Vital Signs: Reviewed and stable. No changes. Cardiovascular: Regular rate. Chest: Clear. ASSESSMENT: 1. Hypertension. 2. Hypercholesterolemia. 3. Adult failure to thrive. PLAN: We will continue to await R placement.
[2016-12-17] MEDS: NON-FORMULARY MED PO SCH (09:19)
[2016-12-17] MEDS: PRINIVIL PO SCH (09:19)
[2016-12-17] MEDS: ATIVAN PO SCH ×2 (09:19→20:09)
[2016-12-17] MEDS: CLARITIN PO SCH (09:19)
[2016-12-17 18:14] LABS: HEMATOCRIT 41.2 % (37.0-47.0); HEMOGLOBIN 13.5 g/dL (12.0-16.0); MCH 28.6 PG (27-31); MCHC 32.8 g/dL (33-37); MCV 87.3 FL (81-99); MPV 10.6 FL (7.4-10.4); RBC 4.72 XMIL (4.2-5.4)
[2016-12-17 18:34] LABS: AGAP 13; ALBUMIN 4.5 g/dL (3.5-5.0); ALKALINE PHOSPHATASE 144 U/L (32-104); BUN 17 mg/dL (8-22); CALCIUM 9.9 mg/dL (8.8-10.2); CHLORIDE 101 mmol/L (98-107); COSMO 284; GOT 31 U/L (10-30); GPT 41 U/L (10-36); MAGNESIUM 2.1 mg/dL (1.5-2.7); POTASSIUM 4.1 mmol/L (3.5-5.1); SODIUM 140 mmol/L (136-145); TCO2 26 mmol/L (25-35); TOTAL PROTEIN 7.7 g/dL (6.3-8.3)
[2016-12-17 18:44] LABS: URINE SOURCE CLEAN CATCH
[2016-12-17 19:01] LABS: BILIRUBIN URINE NEGATIVE (NEGATIVE); BLOOD URINE 1+ (NEGATIVE); CLARITY CLEAR (CLEAR); COLOR YELLOW; GLUCOSE URINE NEGATIVE (NEGATIVE); LEUKOCYTES URINE NEGATIVE (NEGATIVE); NITRITE URINE NEGATIVE (NEGATIVE); PROTEIN URINE NEGATIVE (NEGATIVE); URINE MICROSCOPIC NEEDED? YES; UROBILINOGEN URINE NORMAL
[2016-12-17 19:03] LABS: URINE CAST NONE SEEN /LPF; URINE CRYSTAL NONE SEEN /HPF; URINE EPITHELIAL CELLS >10 /HPF (<10); URINE RBC <10 /HPF (<10)
[2016-12-17] MEDS: ARICEPT PO SCH (20:09)
[2016-12-17] MEDS: LIPITOR PO SCH (20:09)
[2016-12-17] MEDS: ZYPREXA ZYDIS PO SCH (20:09)
[2016-12-18] MEDS: ATIVAN PO SCH ×2 (10:27→20:36)
[2016-12-18] MEDS: CLARITIN PO SCH (10:27)
[2016-12-18] MEDS: PRINIVIL PO SCH (10:27)
[2016-12-18] MEDS: NON-FORMULARY MED PO SCH (10:27)
--- NOTE | 2016-12-18 11:14 | PROGRESS NOTE ---
DATE: 12/18/2016 SUBJECTIVE: No complaints. Sitting in a wheelchair in her hospital room. OBJECTIVE: Vital Signs: Reviewed. She is afebrile. Blood pressure 108/65, pulse 71. General: She is awake, alert, no distress. CV: Regular rate. LABS: Reviewed. CBC, CMP essentially normal. AST, ALT both mildly elevated at 31 and 44. Will continue to follow. UA is clear. ASSESSMENT: 1. Hypertension. 2. Hypercholesterolemia. 3. Adult failure to thrive. 4. Mild acute hepatitis. We will continue to follow. PLAN: Continue to await State approvement for her to go to rehab.
[2016-12-18] MEDS: LIPITOR PO SCH (20:36)
[2016-12-18] MEDS: ARICEPT PO SCH (20:36)
[2016-12-18] MEDS: ZYPREXA ZYDIS PO SCH (20:37)
[2016-12-19] MEDS: ATIVAN PO SCH ×2 (08:23→20:10)
[2016-12-19] MEDS: PRINIVIL PO SCH (08:23)
[2016-12-19] MEDS: CLARITIN PO SCH (08:23)
[2016-12-19] MEDS: NON-FORMULARY MED PO SCH (08:23)
--- NOTE | 2016-12-19 12:09 | PROGRESS NOTE ---
DATE: 12/19/2016 SUBJECTIVE: Patient without complaints. She is noted to ambulate in the nguyen in her wheelchair. OBJECTIVE: Vital Signs: Reviewed. Temperature 97 degrees, pulse 68, respiratory 18, BP 127/76, saturation 98% on room air. General: Patient is a well-developed, elderly female, in no respiratory distress. She is awake, alert. ASSESSMENT: 1. Hypertension. 2. Hypercholesterolemia. 3. Elevated liver function enzymes of undetermined significance. We will continue to follow. 4. Adult failure to thrive. PLAN: We will continue to follow. Hopefully she will be able to discharge to rehab at some point in the near future.
[2016-12-19] MEDS: ZYPREXA ZYDIS PO SCH (20:10)
[2016-12-19] MEDS: ARICEPT PO SCH (20:10)
[2016-12-19] MEDS: LIPITOR PO SCH (20:10)
[2016-12-20] MEDS: ATIVAN PO SCH ×2 (08:07→20:20)
[2016-12-20] MEDS: NON-FORMULARY MED PO SCH (08:07)
[2016-12-20] MEDS: CLARITIN PO SCH (08:08)
[2016-12-20] MEDS: PRINIVIL PO SCH (08:08)
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
[2016-12-20] MEDS: ARICEPT PO SCH (20:20)
[2016-12-20] MEDS: LIPITOR PO SCH (20:20)
[2016-12-20] MEDS: ZYPREXA ZYDIS PO SCH (20:21)
[2016-12-21] MEDS: CLARITIN PO SCH (10:35)
[2016-12-21] MEDS: NON-FORMULARY MED PO SCH (10:35)
[2016-12-21] MEDS: ATIVAN PO SCH ×2 (10:35→21:57)
[2016-12-21] MEDS: PRINIVIL PO SCH (10:35)
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
[2016-12-21] MEDS: LIPITOR PO SCH (21:56)
[2016-12-21] MEDS: ARICEPT PO SCH (21:56)
[2016-12-21] MEDS: ZYPREXA ZYDIS PO SCH (21:57)
[2016-12-22] MEDS: PRINIVIL PO SCH (08:58)
[2016-12-22] MEDS: ATIVAN PO SCH ×2 (08:59→22:44)
[2016-12-22] MEDS: CLARITIN PO SCH (08:59)
[2016-12-22] MEDS: NON-FORMULARY MED PO SCH (08:59)
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
[2016-12-22] MEDS: ARICEPT PO SCH (22:44)
[2016-12-22] MEDS: LIPITOR PO SCH (22:44)
[2016-12-22] MEDS: ZYPREXA ZYDIS PO SCH (22:44)
[2016-12-23] MEDS: PRINIVIL PO SCH (08:46)
[2016-12-23] MEDS: CLARITIN PO SCH (08:46)
[2016-12-23] MEDS: NON-FORMULARY MED PO SCH (08:46)
[2016-12-23] MEDS: ATIVAN PO SCH ×2 (08:46→21:13)
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
[2016-12-23] MEDS: LIPITOR PO SCH (21:13)
[2016-12-23] MEDS: ARICEPT PO SCH (21:13)
[2016-12-23] MEDS: ZYPREXA ZYDIS PO SCH (21:13)
[2016-12-24] MEDS: PRINIVIL PO SCH (08:31)
[2016-12-24] MEDS: CLARITIN PO SCH (08:31)
[2016-12-24] MEDS: NON-FORMULARY MED PO SCH (08:31)
[2016-12-24] MEDS: ATIVAN PO SCH ×2 (08:31→21:02)
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
[2016-12-24] MEDS: ARICEPT PO SCH (21:02)
[2016-12-24] MEDS: ZYPREXA ZYDIS PO SCH (21:02)
[2016-12-24] MEDS: LIPITOR PO SCH (21:02)
[2016-12-25] MEDS: NON-FORMULARY MED PO SCH (08:59)
[2016-12-25] MEDS: PRINIVIL PO SCH (08:59)
[2016-12-25] MEDS: ATIVAN PO SCH ×2 (08:59→20:50)
[2016-12-25] MEDS: CLARITIN PO SCH (08:59)
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
[2016-12-25] MEDS: LIPITOR PO SCH (20:50)
[2016-12-25] MEDS: ZYPREXA ZYDIS PO SCH (20:50)
[2016-12-25] MEDS: ARICEPT PO SCH (20:50)
[2016-12-26] MEDS: NON-FORMULARY MED PO SCH (08:40)
[2016-12-26] MEDS: CLARITIN PO SCH (08:40)
[2016-12-26] MEDS: PRINIVIL PO SCH (08:40)
[2016-12-26] MEDS: ATIVAN PO SCH ×2 (08:40→21:56)
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
[2016-12-26] MEDS: ZYPREXA ZYDIS PO SCH (21:56)
[2016-12-26] MEDS: ARICEPT PO SCH (21:56)
[2016-12-26] MEDS: LIPITOR PO SCH (21:57)
[2016-12-27] MEDS: CLARITIN PO SCH (08:00)
[2016-12-27] MEDS: NON-FORMULARY MED PO SCH (08:00)
[2016-12-27] MEDS: ATIVAN PO SCH ×2 (08:00→20:06)
[2016-12-27] MEDS: PRINIVIL PO SCH (08:00)
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
[2016-12-27] MEDS: ZYPREXA ZYDIS PO SCH (20:05)
[2016-12-27] MEDS: LIPITOR PO SCH (20:06)
[2016-12-27] MEDS: ARICEPT PO SCH (20:06)
[2016-12-28] MEDS: NON-FORMULARY MED PO SCH (08:21)
[2016-12-28] MEDS: CLARITIN PO SCH (08:21)
[2016-12-28] MEDS: PRINIVIL PO SCH (08:21)
[2016-12-28] MEDS: ATIVAN PO SCH ×2 (08:21→21:52)
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
[2016-12-28] MEDS: ARICEPT PO SCH (21:52)
[2016-12-28] MEDS: LIPITOR PO SCH (21:52)
[2016-12-28] MEDS: ZYPREXA ZYDIS PO SCH (21:52)
--- NOTE | 2016-12-29 08:18 | PROGRESS NOTE ---
DATE: 12/29/2016 SUBJECTIVE: No new complaints. Patient is still able to ambulate up and down the nguyen in a wheelchair without any difficulty. OBJECTIVE: Vital Signs: Reviewed. Temperature 97, pulse 64, respiratory rate 18, BP 125/78, saturation 100% on room air. General: Patient is a well developed, elderly female, who has actually become much more talkative over the past 5 months that she has been in the hospital. She is in no distress. ASSESSMENT: 1. Hypertension. 2. Hyperlipidemia. 3. Adult failure to thrive. PLAN: The plan continues to be to transfer her to rehab when the state has completed their paperwork.
[2016-12-29] MEDS: NON-FORMULARY MED PO SCH (09:43)
[2016-12-29] MEDS: ATIVAN PO SCH ×2 (09:44→22:16)
[2016-12-29] MEDS: PRINIVIL PO SCH (09:44)
[2016-12-29] MEDS: CLARITIN PO SCH (09:44)
[2016-12-29] MEDS: LIPITOR PO SCH (22:16)
[2016-12-29] MEDS: ZYPREXA ZYDIS PO SCH (22:17)
[2016-12-29] MEDS: ARICEPT PO SCH (22:17)
[2016-12-30] MEDS: CLARITIN PO SCH ×2 (07:51→08:43)
[2016-12-30] MEDS: ATIVAN PO SCH ×3 (07:51→21:36)
[2016-12-30] MEDS: PRINIVIL PO SCH ×2 (07:51→08:44)
[2016-12-30] MEDS: NON-FORMULARY MED PO SCH ×2 (07:52→08:44)
--- NOTE | 2016-12-30 08:15 | PROGRESS NOTE ---
DATE: 12/30/2016 SUBJECTIVE: No complaints. OBJECTIVE: No changes. Patient is ambulating in the nguyen in a wheelchair. Vital signs reviewed and stable. ASSESSMENT: 1. Hypertension. 2. Hyperlipidemia. 3. Adult failure to thrive. PLAN: Continue to await the state to finish filling out paperwork so Ms. Vuong can be transferred to a care home.
[2016-12-30] MEDS: ARICEPT PO SCH (21:36)
[2016-12-30] MEDS: LIPITOR PO SCH (21:36)
[2016-12-30] MEDS: ZYPREXA ZYDIS PO SCH (21:36)
[2016-12-31] MEDS: PRINIVIL PO SCH (08:04)
[2016-12-31] MEDS: CLARITIN PO SCH (08:04)
[2016-12-31] MEDS: ATIVAN PO SCH ×2 (08:04→20:34)
[2016-12-31] MEDS: NON-FORMULARY MED PO SCH (08:05)
--- NOTE | 2016-12-31 09:53 | PROGRESS NOTE ---
DATE: 12/31/2016 SUBJECTIVE: The patient is currently in the bed but noted to be in a wheelchair off and on in the afternoon. OBJECTIVE: Vital Signs: Temperature 98 degrees, pulse 58, respiratory 18, BP 124/82. Physical is unchanged. ASSESSMENT: 1. Hypertension. 2. Hyperlipidemia. 3. Adult failure to thrive. PLAN: Continue to await state assistance in filling out paperwork to allow her to get to permanent residence in the [facility].
[2016-12-31] MEDS: LIPITOR PO SCH (20:34)
[2016-12-31] MEDS: ZYPREXA ZYDIS PO SCH (20:34)
[2016-12-31] MEDS: ARICEPT PO SCH (20:34)
[2017-01-01] MEDS: ATIVAN PO SCH ×2 (08:33→21:37)
[2017-01-01] MEDS: PRINIVIL PO SCH (08:33)
[2017-01-01] MEDS: CLARITIN PO SCH (08:33)
[2017-01-01] MEDS: NON-FORMULARY MED PO SCH (08:34)
--- NOTE | 2017-01-01 11:37 | PROGRESS NOTE ---
DATE: 01/01/2017 SUBJECTIVE: No changes. OBJECTIVE: Vital signs were reviewed. Physical is otherwise unchanged. ASSESSMENT: 1. Hypertension. 2. Hyperlipidemia. 3. Adult failure to thrive. PLAN: Continuing to wait on the State to actually finish the paperwork and do their job so that Ms. Vuong can be moved to a more permanent residence.
[2017-01-01] MEDS: ZYPREXA ZYDIS PO SCH (21:37)
[2017-01-01] MEDS: LIPITOR PO SCH (21:37)
[2017-01-01] MEDS: ARICEPT PO SCH (21:37)
[2017-01-02] MEDS: ATIVAN PO SCH ×2 (09:20→21:00)
[2017-01-02] MEDS: PRINIVIL PO SCH (09:20)
[2017-01-02] MEDS: CLARITIN PO SCH (09:20)
[2017-01-02] MEDS: NON-FORMULARY MED PO SCH (09:20)
--- NOTE | 2017-01-02 11:06 | PROGRESS NOTE ---
DATE: 01/02/2017 SUBJECTIVE: The patient is sitting up in a wheelchair, talking with the floor staff. She is cheerful. She is cooperative. She has no complaints. OBJECTIVE: Vital Signs: Blood pressure is 118/74, with a heart rate of 68, respirations are 18, temperature is 97.4 degrees oral, with a room air saturations of 99%. Cardiovascular: Regular rate and rhythm. S1 and S2 appreciated. Pulmonary: Breath sounds are clear. No increased work of breathing noted. Gastrointestinal: Abdomen is soft, nontender, nondistended with bowel sounds in all 4 quadrants. ASSESSMENT: 1. Hypertension. 2. Hyperlipidemia. 3. Adult failure to thrive. PLAN: We will continue to wait on the state to actually finish the paperwork so that Ms. Vuong can be moved to a permanent residence. Dictated by DENNIS Rose for Shakeel Dougherty MD
[2017-01-02] MEDS: ZYPREXA ZYDIS PO SCH (21:00)
[2017-01-02] MEDS: LIPITOR PO SCH (21:00)
[2017-01-02] MEDS: ARICEPT PO SCH (21:00)
[2017-01-03] MEDS: CLARITIN PO SCH (08:00)
[2017-01-03] MEDS: NON-FORMULARY MED PO SCH (08:00)
[2017-01-03] MEDS: PRINIVIL PO SCH (08:00)
[2017-01-03] MEDS: ATIVAN PO SCH ×2 (08:00→21:29)
--- NOTE | 2017-01-03 08:05 | PROGRESS NOTE ---
DATE: 01/03/2017 SUBJECTIVE: No complaints. OBJECTIVE: Vital signs: Temperature 97, pulse 68, respiratory 18, BP 118/74. General: Patient is a well-developed female who is awake and alert. She is in no distress. ASSESSMENT: 1. Hypertension. 2. Hyperlipidemia. 3. Adult failure to thrive. PLAN: Will continue to wait placement by the state.
[2017-01-03] MEDS: ARICEPT PO SCH (21:29)
[2017-01-03] MEDS: ZYPREXA ZYDIS PO SCH (21:29)
[2017-01-03] MEDS: LIPITOR PO SCH (21:29)
[2017-01-04] MEDS ORDERED: BLISTEX MEDICATED BERRY LIP BALM TOP PRN (07:01)
[2017-01-04] MEDS ORDERED: SUDAFED PO PRN (07:01)
[2017-01-04] MEDS ORDERED: ATIVAN PO PRN (07:01)
[2017-01-04] MEDS ORDERED: ZOFRAN ODT PO PRN (07:02)
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
[2017-01-04] MEDS: PRINIVIL PO SCH (09:09)
[2017-01-04] MEDS: CLARITIN PO SCH (09:09)
[2017-01-04] MEDS: NON-FORMULARY MED PO SCH (09:09)
[2017-01-04] MEDS: ATIVAN PO SCH ×2 (09:09→21:46)
[2017-01-04] MEDS: LIPITOR PO SCH (21:45)
[2017-01-04] MEDS: ZYPREXA ZYDIS PO SCH (21:45)
[2017-01-04] MEDS: ARICEPT PO SCH (21:46)
[2017-01-04] MEDS: TYLENOL PO PRN (21:48)
--- NOTE | 2017-01-05 08:03 | PROGRESS NOTE ---
DATE: 01/05/2017 SUBJECTIVE: Patient without new complaints. OBJECTIVE: Vital signs: Are stable and reviewed. General: Physical exam is unchanged. She is awake, alert. She is in no respiratory distress. ASSESSMENT: 1. Hypertension. 2. Hyperlipidemia. 3. Adult failure to thrive. PLAN: We will continue to await the state to actually finish their job and paperwork, so that Ms. Vuong can transition to the next phase of her life and move to a jail.
[2017-01-05] MEDS: CLARITIN PO SCH (10:20)
[2017-01-05] MEDS: PRINIVIL PO SCH (10:20)
[2017-01-05] MEDS: ATIVAN PO SCH ×2 (10:20→21:16)
[2017-01-05] MEDS: NON-FORMULARY MED PO SCH (10:20)
[2017-01-05] MEDS: ARICEPT PO SCH (21:16)
[2017-01-05] MEDS: LIPITOR PO SCH (21:16)
[2017-01-05] MEDS: ZYPREXA ZYDIS PO SCH (21:16)
[2017-01-06] MEDS: ATIVAN PO SCH ×2 (08:17→20:17)
[2017-01-06] MEDS: CLARITIN PO SCH (08:17)
[2017-01-06] MEDS: PRINIVIL PO SCH (08:17)
[2017-01-06] MEDS: NON-FORMULARY MED PO SCH (08:17)
--- NOTE | 2017-01-06 09:07 | PROGRESS NOTE ---
DATE: 01/06/2017 SUBJECTIVE: No new complaints. OBJECTIVE: General: Physical with no changes. Vital Signs: Reviewed and stable. Physical examination unchanged. She is awake, alert. She is in no distress. ASSESSMENT: 1. Hypertension. 2. Hyperlipidemia. 3. Adult failure to thrive. PLAN: Continue to await state to finish filing paperwork so Ms. Vuong can move to a more permanent residence.
[2017-01-06] MEDS: LIPITOR PO SCH (20:16)
[2017-01-06] MEDS: ZYPREXA ZYDIS PO SCH (20:16)
[2017-01-06] MEDS: ARICEPT PO SCH (20:17)
[2017-01-07] MEDS: TYLENOL PO PRN (06:05)
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
[2017-01-07] MEDS: CLARITIN PO SCH (08:49)
[2017-01-07] MEDS: ATIVAN PO SCH ×2 (08:49→20:38)
[2017-01-07] MEDS: PRINIVIL PO SCH (08:49)
[2017-01-07] MEDS: NON-FORMULARY MED PO SCH (08:49)
[2017-01-07] MEDS: LIPITOR PO SCH (20:38)
[2017-01-07] MEDS: ZYPREXA ZYDIS PO SCH (20:38)
[2017-01-07] MEDS: ARICEPT PO SCH (20:38)
[2017-01-08] MEDS: ATIVAN PO SCH ×2 (10:21→21:44)
[2017-01-08] MEDS: CLARITIN PO SCH (10:21)
[2017-01-08] MEDS: PRINIVIL PO SCH (10:21)
[2017-01-08] MEDS: NON-FORMULARY MED PO SCH (10:21)
--- NOTE | 2017-01-08 14:13 | PROGRESS NOTE ---
DATE: 01/08/2017 SUBJECTIVE: Patient without complaints. OBJECTIVE: Physical unchanged. Vital signs reviewed and stable. ASSESSMENT: 1. Hypertension. 2. Hyperlipidemia. 3. Adult failure to thrive. PLAN: Continue to await further placement.
[2017-01-08] MEDS: LIPITOR PO SCH (21:43)
[2017-01-08] MEDS: ZYPREXA ZYDIS PO SCH (21:43)
[2017-01-08] MEDS: ARICEPT PO SCH (21:44)
[2017-01-09] MEDS: CLARITIN PO SCH (09:37)
[2017-01-09] MEDS: NON-FORMULARY MED PO SCH (09:37)
[2017-01-09] MEDS: PRINIVIL PO SCH (09:37)
[2017-01-09] MEDS: ATIVAN PO SCH ×2 (09:37→21:10)
--- NOTE | 2017-01-09 14:03 | PROGRESS NOTE ---
DATE: 01/09/2017 SUBJECTIVE: The patient is noted to be in the nguyen, moving back and forth in a wheelchair. OBJECTIVE: The patient is pleasant to talk with. She is awake, follows commands appropriately. Physical exam unchanged. Vital signs stable. ASSESSMENT: 1. Hypertension. 2. Hyperlipidemia. 3. Adult failure to thrive. PLAN: Continue to await the state to finish paperwork so she can move to her next residence.
[2017-01-09] MEDS: ARICEPT PO SCH (21:09)
[2017-01-09] MEDS: ZYPREXA ZYDIS PO SCH (21:10)
[2017-01-09] MEDS: LIPITOR PO SCH (21:10)
[2017-01-10] MEDS: PRINIVIL PO SCH (08:04)
[2017-01-10] MEDS: ATIVAN PO SCH ×2 (08:04→20:11)
[2017-01-10] MEDS: NON-FORMULARY MED PO SCH (08:04)
[2017-01-10] MEDS: CLARITIN PO SCH (08:04)
--- NOTE | 2017-01-10 08:21 | PROGRESS NOTE ---
DATE: 01/10/2017 SUBJECTIVE: No new complaints. OBJECTIVE: No new changes. ASSESSMENT: 1. Hypertension. 2. Hyperlipidemia. PLAN: Continuing to await the state to finish their paperwork and finish their job so that she can go to a more permanent residence.
[2017-01-10] MEDS: ZYPREXA ZYDIS PO SCH (20:11)
[2017-01-10] MEDS: ARICEPT PO SCH (20:11)
[2017-01-10] MEDS: LIPITOR PO SCH (20:11)
[2017-01-11] MEDS: ATIVAN PO SCH ×2 (09:58→20:03)
[2017-01-11] MEDS: CLARITIN PO SCH (09:58)
[2017-01-11] MEDS: NON-FORMULARY MED PO SCH (09:58)
[2017-01-11] MEDS: PRINIVIL PO SCH (09:58)
--- NOTE | 2017-01-11 11:44 | PROGRESS NOTE ---
DATE: 01/11/2017 SUBJECTIVE: No new complaints. OBJECTIVE: No new changes. PHYSICAL: No changes. Vital signs: Reviewed and stable. ASSESSMENT: 1. Hypertension. 2. Hyperlipidemia. 3. Failure to thrive. PLAN: Continue to await rehab placement.
[2017-01-11] MEDS: ZYPREXA ZYDIS PO SCH (20:02)
[2017-01-11] MEDS: ARICEPT PO SCH (20:03)
[2017-01-11] MEDS: LIPITOR PO SCH (20:03)
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
[2017-01-12] MEDS: PRINIVIL PO SCH (08:37)
[2017-01-12] MEDS: CLARITIN PO SCH (08:37)
[2017-01-12] MEDS: NON-FORMULARY MED PO SCH (08:37)
[2017-01-12] MEDS: ATIVAN PO SCH ×2 (08:37→20:04)
[2017-01-12] MEDS: ZYPREXA ZYDIS PO SCH (20:04)
[2017-01-12] MEDS: ARICEPT PO SCH (20:04)
[2017-01-12] MEDS: LIPITOR PO SCH (20:04)
[2017-01-13] MEDS: PRINIVIL PO SCH (09:34)
[2017-01-13] MEDS: ATIVAN PO SCH ×2 (09:34→21:30)
[2017-01-13] MEDS: CLARITIN PO SCH (09:34)
[2017-01-13] MEDS: NON-FORMULARY MED PO SCH (09:34)
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
[2017-01-13] MEDS: FLONASE NAS SCH (16:27)
[2017-01-13] MEDS: ARICEPT PO SCH (21:30)
[2017-01-13] MEDS: LIPITOR PO SCH (21:30)
[2017-01-13] MEDS: ZYPREXA ZYDIS PO SCH (21:30)
[2017-01-14] MEDS: CLARITIN PO SCH (08:42)
[2017-01-14] MEDS: PRINIVIL PO SCH (08:42)
[2017-01-14] MEDS: ATIVAN PO SCH ×2 (08:42→20:13)
[2017-01-14] MEDS: NON-FORMULARY MED PO SCH (08:42)
[2017-01-14] MEDS: FLONASE NAS SCH (08:43)
[2017-01-14] MEDS: LACRI-LUBE OPH OINT BOTH EYES PRN (08:45)
[2017-01-14] MEDS: LIPITOR PO SCH (20:13)
[2017-01-14] MEDS: ZYPREXA ZYDIS PO SCH (20:13)
[2017-01-14] MEDS: ARICEPT PO SCH (20:14)
[2017-01-15] MEDS: ULTRACET 37.5MG/325MG PO PRN ×2 (04:20→11:22)
[2017-01-15] MEDS: PRINIVIL PO SCH (09:28)
[2017-01-15] MEDS: FLONASE NAS SCH (09:28)
[2017-01-15] MEDS: NON-FORMULARY MED PO SCH (09:28)
[2017-01-15] MEDS: ATIVAN PO SCH ×2 (09:28→20:24)
[2017-01-15] MEDS: CLARITIN PO SCH (09:28)
[2017-01-15] MEDS: LACRI-LUBE OPH OINT BOTH EYES PRN ×2 (09:29→12:46)
--- NOTE | 2017-01-15 15:30 | PROGRESS NOTE ---
DATE: 01/15/2017 SUBJECTIVE: Patient has no complaints. She is sitting up coloring in her coloring book. OBJECTIVE: Blood pressure 108/73, heart rate 56, respiratory rate 18, temperature 97.9 degrees, 96% on room air.Cardiovascular: Regular rate and rhythm. Pulmonary: Bilateral breath sounds. Clear to auscultation. GI: Soft, nontender, nondistended. Bowel sounds are positive. Extremities: No clubbing or cyanosis. Lymphatics: No peripheral edema. Neurological: Exam was nonfocal. PROBLEM: 1. Cerebrovascular accident, expressive aphasia, is at baseline. 2. Hypertension. Appears to be controlled. 3. Vascular dementia. She is on Zyprexa and controlled. DISPOSITION: Pending social situation. We will continue to follow.
[2017-01-15] MEDS: LIPITOR PO SCH (20:24)
[2017-01-15] MEDS: ARICEPT PO SCH (20:24)
[2017-01-15] MEDS: ZYPREXA ZYDIS PO SCH (20:25)
[2017-01-16] MEDS: ATIVAN PO SCH ×2 (08:41→20:38)
[2017-01-16] MEDS: CLARITIN PO SCH (08:41)
[2017-01-16] MEDS: PRINIVIL PO SCH (08:41)
[2017-01-16] MEDS: ULTRACET 37.5MG/325MG PO PRN ×2 (08:41→20:38)
[2017-01-16] MEDS: FLONASE NAS SCH (08:42)
[2017-01-16] MEDS: LACRI-LUBE OPH OINT BOTH EYES PRN (08:45)
[2017-01-16] MEDS: NON-FORMULARY MED PO SCH (08:45)
--- NOTE | 2017-01-16 18:33 | PROGRESS NOTE ---
DATE: 01/16/2017 SUBJECTIVE: Patient has no focal complaints. OBJECTIVE: Vital Signs: Stable. Cardiovascular: Regular rate and rhythm. Pulmonary: Bilateral breath sounds, clear to auscultation. PROBLEMS: 1. Vascular dementia. Appears to be controlled. 2. Hypertension. Appears to be stable. DISPOSITION: Pending legal evaluation for placement.
[2017-01-16] MEDS: ZYPREXA ZYDIS PO SCH (20:38)
[2017-01-16] MEDS: LIPITOR PO SCH (20:38)
[2017-01-16] MEDS: ARICEPT PO SCH (20:38)
[2017-01-17] MEDS: ULTRACET 37.5MG/325MG PO PRN ×2 (04:32→20:04)
[2017-01-17] MEDS: CLARITIN PO SCH (08:31)
[2017-01-17] MEDS: ATIVAN PO SCH ×2 (08:31→20:05)
[2017-01-17] MEDS: FLONASE NAS SCH (08:32)
[2017-01-17] MEDS: PRINIVIL PO SCH (08:32)
[2017-01-17] MEDS: LACRI-LUBE OPH OINT BOTH EYES PRN (08:32)
[2017-01-17] MEDS: NON-FORMULARY MED PO SCH (08:32)
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
[2017-01-17] MEDS: LIPITOR PO SCH (20:05)
[2017-01-17] MEDS: ZYPREXA ZYDIS PO SCH (20:05)
[2017-01-17] MEDS: ARICEPT PO SCH (20:05)
[2017-01-18] MEDS: CLARITIN PO SCH (09:13)
[2017-01-18] MEDS: PRINIVIL PO SCH (09:13)
[2017-01-18] MEDS: NON-FORMULARY MED PO SCH (09:13)
[2017-01-18] MEDS: ATIVAN PO SCH ×2 (09:13→21:56)
[2017-01-18] MEDS: FLONASE NAS SCH (09:14)
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
[2017-01-18] MEDS: ZYPREXA ZYDIS PO SCH (21:56)
[2017-01-18] MEDS: LIPITOR PO SCH (21:56)
[2017-01-18] MEDS: ARICEPT PO SCH (21:56)
[2017-01-19] MEDS: NON-FORMULARY MED PO SCH (08:02)
[2017-01-19] MEDS: ATIVAN PO SCH ×2 (08:02→20:05)
[2017-01-19] MEDS: IMODIUM PO PRN (08:02)
[2017-01-19] MEDS: PRINIVIL PO SCH (08:02)
[2017-01-19] MEDS: CLARITIN PO SCH (08:02)
[2017-01-19] MEDS: FLONASE NAS SCH (08:04)
[2017-01-19] MEDS: ARICEPT PO SCH (20:05)
[2017-01-19] MEDS: LIPITOR PO SCH (20:05)
[2017-01-19] MEDS: ZYPREXA ZYDIS PO SCH (20:05)
[2017-01-20] MEDS: ULTRACET 37.5MG/325MG PO PRN ×2 (06:05→12:07)
[2017-01-20] MEDS: FLONASE NAS SCH (08:51)
[2017-01-20] MEDS: CLARITIN PO SCH (08:52)
[2017-01-20] MEDS: ATIVAN PO SCH ×2 (08:52→20:52)
[2017-01-20] MEDS: NON-FORMULARY MED PO SCH (08:52)
[2017-01-20] MEDS: LACRI-LUBE OPH OINT BOTH EYES PRN (08:52)
[2017-01-20] MEDS: PRINIVIL PO SCH (08:52)
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
[2017-01-20] MEDS: ZYPREXA ZYDIS PO SCH (20:52)
[2017-01-20] MEDS: ARICEPT PO SCH (20:52)
[2017-01-20] MEDS: LIPITOR PO SCH (20:52)
[2017-01-21] MEDS: ULTRACET 37.5MG/325MG PO PRN (02:08)
[2017-01-21] MEDS: NON-FORMULARY MED PO SCH (08:01)
[2017-01-21] MEDS: CLARITIN PO SCH (08:01)
[2017-01-21] MEDS: FLONASE NAS SCH (08:01)
[2017-01-21] MEDS: ATIVAN PO SCH ×2 (08:01→20:20)
[2017-01-21] MEDS: PRINIVIL PO SCH (08:01)
[2017-01-21] MEDS: LACRI-LUBE OPH OINT BOTH EYES PRN (08:05)
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
[2017-01-21] MEDS: LIPITOR PO SCH (20:21)
[2017-01-21] MEDS: ARICEPT PO SCH (20:21)
[2017-01-21] MEDS: ZYPREXA ZYDIS PO SCH (20:21)
[2017-01-22] MEDS: ULTRACET 37.5MG/325MG PO PRN ×2 (02:30→08:50)
[2017-01-22] MEDS: CLARITIN PO SCH (08:49)
[2017-01-22] MEDS: PRINIVIL PO SCH (08:49)
[2017-01-22] MEDS: ATIVAN PO SCH ×2 (08:49→21:40)
[2017-01-22] MEDS: NON-FORMULARY MED PO SCH (08:49)
[2017-01-22] MEDS: LACRI-LUBE OPH OINT BOTH EYES PRN (08:52)
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
[2017-01-22] MEDS: FLONASE NAS SCH (17:57)
[2017-01-22] MEDS: ZYPREXA ZYDIS PO SCH (21:40)
[2017-01-22] MEDS: ARICEPT PO SCH (21:40)
[2017-01-22] MEDS: LIPITOR PO SCH (21:40)
[2017-01-23] MEDS: CLARITIN PO SCH (09:34)
[2017-01-23] MEDS: PRINIVIL PO SCH (09:34)
[2017-01-23] MEDS: FLONASE NAS SCH (09:35)
[2017-01-23] MEDS: ATIVAN PO SCH ×2 (09:35→21:03)
[2017-01-23] MEDS: NON-FORMULARY MED PO SCH (09:35)
--- NOTE | 2017-01-23 11:36 | PROGRESS NOTE ---
DATE: 01/23/2017 SUBJECTIVE: No complaints. Patient is actually upset this morning that she wanted a hamburger for breakfast. PHYSICAL EXAMINATION: Vital Signs: Temperature 97, pulse 62, respiratory rate 18, BP 130/73. General: Patient is well developed, well nourished. She is currently in no respiratory distress. She is ambulating in the nguyen in a wheelchair as she has for the past several months. Physical examination unchanged. ASSESSMENT: 1. Hypertension. 2. Hyperlipidemia. 3. Failure to thrive. 4. Vascular dementia. PLAN: Continue to await rehab placement as we are waiting on the state to finish the paperwork. cc: Shakeel Dougherty MD
[2017-01-23] MEDS: ARICEPT PO SCH (21:03)
[2017-01-23] MEDS: ZYPREXA ZYDIS PO SCH (21:03)
[2017-01-23] MEDS: LIPITOR PO SCH (21:03)
[2017-01-23] MEDS: ULTRACET 37.5MG/325MG PO PRN (21:03)
--- NOTE | 2017-01-24 08:24 | PROGRESS NOTE ---
DATE: 01/24/2017 SUBJECTIVE: No complaints. OBJECTIVE: No changes. PHYSICAL EXAMINATION: Unchanged. ASSESSMENT: 1. Hypertension. 2. Hyperlipidemia. 3. Failure to thrive. PLAN: Continue to await placement. cc: Shakeel Dougherty MD
[2017-01-24] MEDS: PRINIVIL PO SCH (10:37)
[2017-01-24] MEDS: ATIVAN PO SCH ×2 (10:37→20:37)
[2017-01-24] MEDS: NON-FORMULARY MED PO SCH (10:37)
[2017-01-24] MEDS: FLONASE NAS SCH (10:38)
[2017-01-24] MEDS: CLARITIN PO SCH (10:38)
[2017-01-24] MEDS: LACRI-LUBE OPH OINT BOTH EYES PRN (12:07)
[2017-01-24] MEDS: LIPITOR PO SCH (20:37)
[2017-01-24] MEDS: ARICEPT PO SCH (20:37)
[2017-01-24] MEDS: ZYPREXA ZYDIS PO SCH (20:37)
--- NOTE | 2017-01-25 08:48 | PROGRESS NOTE ---
DATE: 01/25/2017 SUBJECTIVE: No new complaints. The patient ambulates in the nguyen in her wheelchair. OBJECTIVE: Physical is unchanged. Vital signs are stable. ASSESSMENT: 1. Hypertension. 2. Hyperlipidemia. 3. Failure to thrive. PLAN: The plan has been unchanged for the last several months. We continue to follow her medically while their state drags their feet waiting to finish the paperwork so that she can move to a permanent residence. cc: Shakeel Dougherty MD
[2017-01-25] MEDS: FLONASE NAS SCH (09:21)
[2017-01-25] MEDS: ATIVAN PO SCH ×2 (09:21→21:16)
[2017-01-25] MEDS: CLARITIN PO SCH (09:21)
[2017-01-25] MEDS: PRINIVIL PO SCH (09:21)
[2017-01-25] MEDS: NON-FORMULARY MED PO SCH (09:21)
[2017-01-25] MEDS: LACRI-LUBE OPH OINT BOTH EYES PRN (09:21)
[2017-01-25] MEDS: ZYPREXA ZYDIS PO SCH (21:16)
[2017-01-25] MEDS: ARICEPT PO SCH (21:17)
[2017-01-25] MEDS: LIPITOR PO SCH (21:17)
--- NOTE | 2017-01-26 07:58 | PROGRESS NOTE ---
DATE: 01/26/2017 SUBJECTIVE: Patient without any complaints or changes. OBJECTIVE: Vital signs reviewed and stable. No changes. ASSESSMENT: 1. Hypertension. 2. Hyperlipidemia. PLAN: No changes. Continuing to wait on the state to finally do their job so she can move to a permanent residence. cc: Shakeel Dougherty MD
[2017-01-26] MEDS: ATIVAN PO SCH ×2 (09:48→19:59)
[2017-01-26] MEDS: FLONASE NAS SCH (09:48)
[2017-01-26] MEDS: CLARITIN PO SCH (09:48)
[2017-01-26] MEDS: NON-FORMULARY MED PO SCH (09:48)
[2017-01-26] MEDS: PRINIVIL PO SCH (09:48)
[2017-01-26] MEDS: ARICEPT PO SCH (19:59)
[2017-01-26] MEDS: LIPITOR PO SCH (20:00)
[2017-01-26] MEDS: ZYPREXA ZYDIS PO SCH (20:00)
--- NOTE | 2017-01-27 08:21 | PROGRESS NOTE ---
DATE: 01/27/2017 SUBJECTIVE: No complaints. No changes. OBJECTIVE: Vital Signs: Reviewed and stable. Blood pressure 134/84, pulse 66, respiratory 20. General: Unchanged. Patient is ambulating in the nguyen in her chair. Currently, she is sitting in her hospital room. ASSESSMENT: 1. Hypertension. 2. Hyperlipidemia. 3. Failure to thrive. PLAN: Continue to await the state to finish their paperwork, so that she can be moved to a more permanent residence. cc: Shakeel Dougherty MD
[2017-01-27] MEDS: NON-FORMULARY MED PO SCH (09:12)
[2017-01-27] MEDS: CLARITIN PO SCH (09:12)
[2017-01-27] MEDS: ATIVAN PO SCH ×2 (09:12→20:41)
[2017-01-27] MEDS: PRINIVIL PO SCH (09:12)
[2017-01-27] MEDS: FLONASE NAS SCH (09:13)
[2017-01-27] MEDS: LACRI-LUBE OPH OINT BOTH EYES PRN (09:14)
[2017-01-27] MEDS: ARICEPT PO SCH (20:41)
[2017-01-27] MEDS: LIPITOR PO SCH (20:41)
[2017-01-27] MEDS: ZYPREXA ZYDIS PO SCH (20:41)
[2017-01-27] MEDS: ULTRACET 37.5MG/325MG PO PRN (20:45)
[2017-01-28] MEDS: NON-FORMULARY MED PO SCH (09:14)
[2017-01-28] MEDS: ATIVAN PO SCH ×2 (09:14→21:04)
[2017-01-28] MEDS: CLARITIN PO SCH (09:14)
[2017-01-28] MEDS: PRINIVIL PO SCH (09:14)
[2017-01-28] MEDS: FLONASE NAS SCH (09:15)
--- NOTE | 2017-01-28 09:15 | PROGRESS NOTE ---
DATE: 01/28/2017 SUBJECTIVE: No changes. OBJECTIVE: No changes. Vital signs stable. Temperature 97 degrees, pulse 79, respiratory rate 18, BP 116/81, saturation 96% on room air. PLAN: We will continue to follow. Continue to await state to finish the paperwork, so she can be transferred to a more permanent residence. cc: Shakeel Dougherty MD
[2017-01-28] MEDS: IMODIUM PO PRN (12:35)
[2017-01-28] MEDS: ZYPREXA ZYDIS PO SCH (21:04)
[2017-01-28] MEDS: ARICEPT PO SCH (21:05)
[2017-01-28] MEDS: TYLENOL PO PRN (21:05)
[2017-01-28] MEDS: LIPITOR PO SCH (21:05)
[2017-01-29] MEDS: ULTRACET 37.5MG/325MG PO PRN (08:04)
[2017-01-29] MEDS: PRINIVIL PO SCH (08:04)
[2017-01-29] MEDS: ATIVAN PO SCH ×2 (08:04→20:40)
[2017-01-29] MEDS: CLARITIN PO SCH (08:04)
[2017-01-29] MEDS: FLONASE NAS SCH (08:05)
[2017-01-29] MEDS: NON-FORMULARY MED PO SCH (08:05)
--- NOTE | 2017-01-29 11:49 | PROGRESS NOTE ---
DATE: 01/29/2017 SUBJECTIVE: No changes. OBJECTIVE: Vital Signs: Temp 97, pulse 56, respiratory rate 18, BP 125/76, satting 99% on room air. General: Physical unchanged. She is awake, alert, sitting in her wheelchair. ASSESSMENT: 1. Hypertension. 2. Hyperlipidemia. 3. Vascular dementia. PLAN: Continue to await rehab placement. cc: Shakeel Dougherty MD
[2017-01-29] MEDS: LIPITOR PO SCH (20:40)
[2017-01-29] MEDS: ARICEPT PO SCH (20:40)
[2017-01-29] MEDS: ZYPREXA ZYDIS PO SCH (20:40)
[2017-01-30] MEDS: ATIVAN PO SCH ×2 (09:31→21:34)
[2017-01-30] MEDS: FLONASE NAS SCH (09:31)
[2017-01-30] MEDS: CLARITIN PO SCH (09:31)
[2017-01-30] MEDS: PRINIVIL PO SCH (09:31)
[2017-01-30] MEDS: NON-FORMULARY MED PO SCH (09:32)
--- NOTE | 2017-01-30 11:42 | PROGRESS NOTE ---
DATE: 01/30/2017 SUBJECTIVE: No complaints. PHYSICAL EXAMINATION: No changes. Vital signs stable. ASSESSMENT: Hypertension. PLAN: Continue to await transfer to a more permanent facility. cc: Shakeel Dougherty MD
[2017-01-30] MEDS: LIPITOR PO SCH (21:34)
[2017-01-30] MEDS: ZYPREXA ZYDIS PO SCH (21:34)
[2017-01-30] MEDS: ARICEPT PO SCH (21:34)
[2017-01-31] MEDS: NON-FORMULARY MED PO SCH (07:59)
[2017-01-31] MEDS: PRINIVIL PO SCH (07:59)
[2017-01-31] MEDS: ATIVAN PO SCH ×2 (07:59→20:42)
[2017-01-31] MEDS: FLONASE NAS SCH (07:59)
[2017-01-31] MEDS: CLARITIN PO SCH (08:00)
[2017-01-31] MEDS: ULTRACET 37.5MG/325MG PO PRN (10:33)
[2017-01-31] MEDS: LIPITOR PO SCH (20:42)
[2017-01-31] MEDS: ARICEPT PO SCH (20:42)
[2017-01-31] MEDS: ZYPREXA ZYDIS PO SCH (20:42)
--- NOTE | 2017-02-01 00:32 | PROGRESS NOTE ---
DATE: 01/31/2017 SUBJECTIVE: No changes. She is sitting in a wheelchair. OBJECTIVE: Vital signs are stable. No physical changes. ASSESSMENT: 1. Hypertension. 2. Hyperlipidemia. 3. Failure to thrive. 4. Vascular dementia. PLAN: Patient has continued to improve slowly with adequate nutrition. We will continue lisinopril 10 mg for her blood pressure. Lipitor for her cholesterol, Aricept for her dementia. We will continue Zyprexa. She actually seemed to have good improvement with Nuedexta, therefore we will continue this as well. Hopefully she can transfer to her permanent residence soon. cc: Shakeel Dougherty MD
[2017-02-01] MEDS: PRINIVIL PO SCH (09:18)
[2017-02-01] MEDS: NON-FORMULARY MED PO SCH (09:18)
[2017-02-01] MEDS: ATIVAN PO SCH ×2 (09:18→20:28)
[2017-02-01] MEDS: FLONASE NAS SCH (09:19)
[2017-02-01] MEDS: CLARITIN PO SCH (09:19)
--- NOTE | 2017-02-01 14:18 | PROGRESS NOTE ---
DATE: 02/01/2017 SUBJECTIVE: Today Ms. Vuong refers to be doing fine. She was sitting up in the chair doing some drawings. She denies any acute complaints. OBJECTIVE: Vital signs: Blood pressure is 132/80, pulse is 64, respirations 18, temperature is 97.9 degrees. General: Ms. Vuong is a 61-year-old female. She was sitting up in the chair. She was not in any distress. HEENT: Mucosa is pink and moist. Anicteric. Acyanotic. Neck: Supple. Chest: Clear. Patient does have right side hemiparesis. ASSESSMENT: 1. Hypertension. 2. Dyslipidemia. 3. Failure to thrive. 4. Vascular dementia. 5. Cerebrovascular accident with right side hemiparesis. 6. Social case. My understanding is that patient is still pending paperwork for disposition. cc: Luis Lovett MD
[2017-02-01] MEDS: ZYPREXA ZYDIS PO SCH (20:28)
[2017-02-01] MEDS: LIPITOR PO SCH (20:28)
[2017-02-01] MEDS: ARICEPT PO SCH (20:29)
[2017-02-01] MEDS: TYLENOL PO PRN (20:33)
[2017-02-02] MEDS: ATIVAN PO SCH ×2 (09:41→20:16)
[2017-02-02] MEDS: NON-FORMULARY MED PO SCH (09:41)
[2017-02-02] MEDS: PRINIVIL PO SCH (09:41)
[2017-02-02] MEDS: FLONASE NAS SCH (09:41)
[2017-02-02] MEDS: CLARITIN PO SCH (09:41)
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
[2017-02-02] MEDS: ARICEPT PO SCH (20:16)
[2017-02-02] MEDS: LIPITOR PO SCH (20:16)
[2017-02-02] MEDS: ZYPREXA ZYDIS PO SCH (20:16)
[2017-02-03] MEDS ORDERED: ATIVAN PO PRN (07:31)
[2017-02-03] MEDS ORDERED: ZOFRAN ODT PO PRN (07:32)
[2017-02-03] MEDS ORDERED: TYLENOL PO PRN (07:32)
[2017-02-03] MEDS ORDERED: BLISTEX MEDICATED BERRY LIP BALM TOP PRN (07:32)
[2017-02-03] MEDS: ATIVAN PO SCH ×2 (08:20→21:07)
[2017-02-03] MEDS: IMODIUM PO PRN (08:20)
[2017-02-03] MEDS: CLARITIN PO SCH (08:21)
[2017-02-03] MEDS: NON-FORMULARY MED PO SCH (08:21)
[2017-02-03] MEDS: FLONASE NAS SCH (08:21)
[2017-02-03] MEDS: PRINIVIL PO SCH (08:21)
[2017-02-03] MEDS: ULTRACET 37.5MG/325MG PO PRN (08:25)
[2017-02-03] MEDS: LACRI-LUBE OPH OINT BOTH EYES PRN (08:27)
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
[2017-02-03] MEDS ORDERED: ARICEPT PO SCH (21:00)
[2017-02-03] MEDS: ZYPREXA ZYDIS PO SCH (21:06)
[2017-02-03] MEDS: ARICEPT PO SCH (21:07)
[2017-02-03] MEDS: LIPITOR PO SCH (21:07)
[2017-02-04] MEDS: ULTRACET 37.5MG/325MG PO PRN ×2 (00:30→09:08)
[2017-02-04] MEDS: NON-FORMULARY MED PO SCH (09:08)
[2017-02-04] MEDS: ATIVAN PO SCH ×2 (09:08→20:07)
[2017-02-04] MEDS: FLONASE NAS SCH (09:09)
[2017-02-04] MEDS: CLARITIN PO SCH (09:09)
[2017-02-04] MEDS: PRINIVIL PO SCH (09:09)
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
[2017-02-04] MEDS: ARICEPT PO SCH (20:06)
[2017-02-04] MEDS: LIPITOR PO SCH (20:07)
[2017-02-04] MEDS: ZYPREXA ZYDIS PO SCH (20:07)
[2017-02-05] MEDS: ULTRACET 37.5MG/325MG PO PRN (04:59)
[2017-02-05] MEDS: FLONASE NAS SCH (08:17)
[2017-02-05] MEDS: IMODIUM PO PRN (08:17)
[2017-02-05] MEDS: PRINIVIL PO SCH (08:17)
[2017-02-05] MEDS: ATIVAN PO SCH ×2 (08:17→20:44)
[2017-02-05] MEDS: CLARITIN PO SCH (08:17)
[2017-02-05] MEDS: NON-FORMULARY MED PO SCH (08:17)
[2017-02-05] MEDS: LACRI-LUBE OPH OINT BOTH EYES PRN (08:18)
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
[2017-02-05] MEDS: LIPITOR PO SCH (20:43)
[2017-02-05] MEDS: ZYPREXA ZYDIS PO SCH (20:43)
[2017-02-05] MEDS: ARICEPT PO SCH (20:44)
[2017-02-06] MEDS: CLARITIN PO SCH (08:43)
[2017-02-06] MEDS: NON-FORMULARY MED PO SCH (08:43)
[2017-02-06] MEDS: PRINIVIL PO SCH (08:43)
[2017-02-06] MEDS: ATIVAN PO SCH ×2 (08:43→20:59)
[2017-02-06] MEDS: FLONASE NAS SCH (08:44)
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
[2017-02-06] MEDS: ULTRACET 37.5MG/325MG PO PRN (17:50)
[2017-02-06] MEDS: ARICEPT PO SCH (20:59)
[2017-02-06] MEDS: LIPITOR PO SCH (20:59)
[2017-02-06] MEDS: ZYPREXA ZYDIS PO SCH (20:59)
[2017-02-07] MEDS: ATIVAN PO SCH ×2 (08:19→20:18)
[2017-02-07] MEDS: FLONASE NAS SCH (08:19)
[2017-02-07] MEDS: CLARITIN PO SCH (08:19)
[2017-02-07] MEDS: IMODIUM PO PRN (08:19)
[2017-02-07] MEDS: PRINIVIL PO SCH (08:19)
[2017-02-07] MEDS: NON-FORMULARY MED PO SCH (08:20)
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
--- NOTE | 2017-02-07 17:32 | Diag Imaging Result Document ---
PROCEDURE NAME: CHEST-PORTABLE - 02/07/2017 COMPARISON: None. FINDINGS: The lungs are normally expanded and clear. Heart size and mediastinal contours are normal. No pneumothorax or pleural effusion. IMPRESSION: Negative exam.
[2017-02-07] MEDS: ARICEPT PO SCH (20:18)
[2017-02-07] MEDS: LIPITOR PO SCH (20:18)
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
[2017-02-07] MEDS ORDERED: DESYREL PO SCH (21:00)
[2017-02-08] MEDS: ULTRACET 37.5MG/325MG PO PRN (07:15)
[2017-02-08 07:47] VITALS: BP 134/69
[2017-02-08] MEDS: IMODIUM PO PRN (08:20)
[2017-02-08] MEDS: NON-FORMULARY MED PO SCH (08:20)
[2017-02-08] MEDS: ATIVAN PO SCH (08:20)
[2017-02-08] MEDS: CLARITIN PO SCH (08:20)
[2017-02-08] MEDS: PRINIVIL PO SCH (08:20)
[2017-02-08] MEDS: FLONASE NAS SCH (08:20)
== END 2017-02-08 11:25 ==
LOC: P.ED 13:21 → OBSVTOIN 16:50 → SUATTDRO 16:50 → P.MEDSURG 16:50
PROVIDERS: ATTEND Internal Medicine